=== PATIENT | female | born 1935 | race Caucasian/White ===

== ENCOUNTER 2018-05-16 12:54 | Inpatient (IN) ==
--- NOTE | 2018-05-16 13:21 | Emergency Department Note ---
Disposition Clinical Impression: Hyperkalemia, Uremia Acute on chronic kidney failure Qualifiers: Acute renal failure type: unspecified Chronic kidney disease stage: unspecified stage Qualified Code(s): N17.9 - Acute kidney failure, unspecified Heart failure Qualifiers: Heart failure type: other Qualified Code(s): I50.89 - Other heart failure Disposition: Admitted As Inpatient Condition: Fair General Adult HPI - General Stated complaint: weakness, sob Time Seen by Provider: 05/16/18 13:02 Source: patient Mode of arrival: EMS Limitations: no limitations Nursing Notes Reviewed: Yes Vital Signs Reviewed: Yes - History of Present Illness HPI Narrative: 83-year-old female with history of chronic kidney disease, diabetes, heart failure presents for evaluation of dyspnea and weakness. Patient presented from the cancer center. Patient notes increasing dyspnea. Most with exertion. Patient states she can no longer perform activities of daily living. Patient reports and operative cough. No chest pain. Patient states that she feels fluid overloaded. Does take Lasix at home with no change in dosing. Patient denies any fevers. No abdominal pain. Patient states she continues to urinate. Patient's windows software engineer is Dr. Newton. - Related Data Home Medications Medication Instructions Recorded Confirmed ALPRAZolam [Xanax 0.5 MG Tablet] 0.5 mg PO HS 05/05/18 05/16/18 Alendronate Sodium [Fosamax] 70 mg PO QWEEK 05/05/18 05/16/18 Allopurinol [Zyloprim 100 MG] 100 mg PO DAILY 05/05/18 05/16/18 Ascorbate Calcium/Bioflavonoid 1 each PO DAILY 05/05/18 05/16/18 [Laura-C 500 mg Tablet] Atorvastatin [Lipitor] 40 mg PO HS 05/05/18 05/16/18 Carvedilol 12.5 tab PO BID 05/05/18 05/16/18 Clopidogrel [Plavix] 75 mg PO DAILY 05/05/18 05/16/18 Furosemide [Lasix] 40 mg PO DAILY 05/05/18 05/16/18 Gabapentin [Neurontin] 300 mg PO BID 05/05/18 05/16/18 Glucosamn/Condroitn/C/Mn/[place] 1 each PO DAILY 05/05/18 05/16/18 [Cvs Glucosamine Chondroit Cplt] Hydralazine HCl 50 mg PO TID 05/05/18 05/16/18 Insulin ASPART [NovoLOG] 10 - 20 unit SQ TIDWM 05/05/18 05/16/18 Isosorbide MONOnitrate (24 HR) 60 mg PO DAILY 05/05/18 05/16/18 [Imdur] Meclizine HCl [Verticalm] 25 mg PO DAILY PRN 05/05/18 05/16/18 Nitroglycerin [Nitrostat] 0.4 mg SL PRN PRN 05/05/18 05/16/18 Olmesartan Medoxomil [Benicar] 40 mg PO DAILY 05/05/18 05/16/18 [place]-3S/Dha/Epa/Fish Oil [Fish 1 each PO BID 05/05/18 05/16/18 Oil [place]-3 Softgel] Ubidecarenone/Vit E Acetate [Co 300 mg PO DAILY 05/05/18 05/16/18 Q-10 100 mg Softgel] Vitamin B Complex Vit C No.4 1 tab PO DAILY 05/05/18 05/16/18 [Super B Complex] Insulin Degludec [Tresiba 10 - 16 unit SQ HS 05/16/18 05/16/18 Flextouch U-100] Allergies Allergy/AdvReac Type Severity Reaction Status Date / Time Iodinated Contrast- Oral and Allergy Anaphylaxis Verified 05/16/18 12:16 IV Dye aspirin AdvReac Nose Bleed Verified 05/16/18 12:16 chlorthalidone AdvReac OTHER Verified 05/16/18 12:16 codeine AdvReac Vomiting Verified 05/16/18 12:16 pregabalin [From Lyrica] AdvReac other Verified 05/16/18 12:16 tramadol AdvReac Headache Verified 05/16/18 12:16 All systems ED: reviewed and negative except as stated. Constitutional: Denies: fever Cardiovascular: Denies: chest pain Respiratory: Reports: cough, dyspnea. Denies: sputum production Gastrointestinal: Denies: abdominal pain, nausea, vomiting Past Medical History - Past Medical History Source: patient - Social History Smoking Status: Former smoker Alcohol use: Reports: none Physical Exam - General Limitations: no limitations General appearance: alert, in no apparent distress - Head Head exam: atraumatic, normocephalic, normal inspection - Eye Eye exam: Present: normal appearance - ENT ENT exam: normal exam, mucous membranes moist - Neck Neck exam: Present: normal inspection - Chest Chest inspection: Present: normal inspection - Respiratory Respiratory exam: Present: other (Diffusely diminished). Absent: respiratory distress - Cardiovascular Cardiovascular exam: Present: regular rate, normal rhythm. Absent: systolic murmur - Abdominal Exam Abdominal exam: Present: soft, Non-Tender - Extremities Exam Extremities exam: Present: normal inspection, pedal edema (1+ bilateral) - Expanded Lower Extremity Exam Neurovascular/Tendon exam: Present: normal capillary refill - Back Exam Back exam: Present: normal inspection - Neurological Exam Neurological exam: Present: alert, oriented X3, CN II-XII intact - Skin Skin exam: Present: warm, dry, intact, normal color Course Course Narrative: Patient's been evaluated the cancer center due to her chronic anemia. Patient denies any blood in her stool or dark tarry stools. Patient's records show that her creatinine is gotten worse. Patient's also had a 2 kg weight gain in 2 days. Patient will get basic cardiopulmonary labs, urinalysis chest x-ray disposition likely admission for worsening kidney disease. - Reevaluation(s) Reevaluation #1: Patient's resting comfortably. Patient's EKG does show sinus bradycardia. Concerns of this may be manifest with hyperkalemia in the setting of acute on chronic kidney disease. Patient will get insulin glucose and dextrose. Patient will also get calcium gluconate. Time: 14:55 Reevaluation #2: Renal ultrasound as well as repeat BMP was placed. This can be followed up on the inpatient setting. Time: 15:35 - Consultations Consultation #1: Spoke with nephrology states they will see the patient. Time: 14:48 Vital Signs Temperature 97.6 F 05/16/18 13:08 Pulse Rate 50 05/16/18 13:08 Respiratory Rate 16 05/16/18 13:08 Blood Pressure 124/42 05/16/18 13:08 O2 Sat by Pulse Oximetry 97 05/16/18 13:08 Temperature 98.8 F 05/16/18 17:58 Pulse Rate 60 05/16/18 17:58 Respiratory Rate 18 05/16/18 17:58 Blood Pressure 119/75 05/16/18 17:58 O2 Sat by Pulse Oximetry 89 05/16/18 17:58 Oxygen Delivery Oxygen Delivery Room Air Medical Decision Making - MDM Narrative Medical decision making narrative: Patient presented for shortness of breath. The course the patient's ED evaluation the patient has developed acute on chronic kidney disease. Patient is uremic with no change in mental status. Potassium is elevated at 5.5. Patient does have sinus bradycardia and concerns for elevated potassium. Patient was treated with calcium as well as sodium bicarbonate glucose and insulin. Patient was also noted to have an elevated BNP and concerns for just of heart failure. Patient's FE urea suggestive prerenal disease and was given a small fluid bolus. Patient's continued to urinate. Discussed the case with the on-call windows software engineer will see the patient has an inpatient. Patient is agreeable with this plan of care. - Lab Data Lab results reviewed: Yes I reviewed the patient's lab results. Result diagrams: 05/16/18 13:21 05/16/18 15:48 Lab Results 05/16/18 05/16/18 05/16/18 Range/Units 13:21 13:21 13:21 WBC 6.9 (4.3-11.1) K/mcL RBC 2.79 L (3.82-4.97) M/mcL Hgb 9.2 L (11.5-15.4) g/dL Hct 28.6 L (35.3-44.9) % MCV 102.5 H (83.0-100.0) fL MCH 33.0 (28.0-33.3) pg MCHC 32.2 (31.6-35.5) g/dL RDW 15.4 H (11.5-14.5) % Plt Count 149 (140-400) K/mcL MPV 12.4 (9.4-12.4) fL Immature Gran % 0.4 (0-4) % Seg Neutrophils % 81.6 % Lymphocytes % 12.6 % Monocytes % 3.8 % Eosinophils % 1.3 % Basophils % 0.3 % Neutrophils # 5.6 (1.6-8.9) K/mcL Lymphocytes # 0.9 (0.6-4.6) K/mcL Monocytes # 0.3 (0.0-1.3) K/mcL Eosinophils # 0.1 (0.0-0.6) K/mcL Basophils # 0.0 (0.0-0.2) K/mcL PT 13.1 H (9.4-12.1) Seconds INR 1.2 APTT 39.1 H (26.0-36.0) Seconds Sodium (136-145) mEq/L Potassium (3.5-5.1) mEq/L Chloride (98-107) mEq/L Carbon Dioxide (23-29) mEq/L BUN (8-23) mg/dL Creatinine (0.60-1.20) mg/dL Est GFR ( Amer) (> 60) Est GFR (Non-Af Amer) (> 60) BUN/Creatinine Ratio Glucose (70-105) mg/dL Calculated Osmolality Calcium (8.6-10.3) mg/dL Troponin I (< 0.04) ng/mL B-Natriuretic Peptide 1408 H (Less than 100) pg/mL Urine Color (Yellow) Urine Clarity (Clear) Urine pH (5.0-8.0) pH Units Ur Specific [place] (1.010-1.025) Urine Protein (Neg-Trace) mg/dL Urine Glucose (UA) (Normal) mg/dL Urine Ketones (Negative) mg/dL Urine Blood (Negative) Urine Nitrite (Negative) Urine Bilirubin (Negative) Urine Urobilinogen (Normal) mg/dL Ur Leukocyte Esterase (Negative) Urine Microscopic RBC (0-3) per hpf Urine Microscopic WBC (0-3) per hpf Ur Squamous Epith Cells (None-Few) per lpf Urine Bacteria (None-Few) per hpf Hyaline Casts (None-Few) per lpf Ur Culture Indicated? (NO) Urine Creatinine mg/dL Protein/Creatinin Ratio (0.00-0.20) mg/mg Urine Sodium mEq/L Urine Urea Nitrogen mg/dL Urine Total Protein (1-14) mg/dL 05/16/18 05/16/18 05/16/18 Range/Units 13:21 14:01 14:01 WBC (4.3-11.1) K/mcL RBC (3.82-4.97) M/mcL Hgb (11.5-15.4) g/dL Hct (35.3-44.9) % MCV (83.0-100.0) fL MCH (28.0-33.3) pg MCHC (31.6-35.5) g/dL RDW (11.5-14.5) % Plt Count (140-400) K/mcL MPV (9.4-12.4) fL Immature Gran % (0-4) % Seg Neutrophils % % Lymphocytes % % Monocytes % % Eosinophils % % Basophils % % Neutrophils # (1.6-8.9) K/mcL Lymphocytes # (0.6-4.6) K/mcL Monocytes # (0.0-1.3) K/mcL Eosinophils # (0.0-0.6) K/mcL Basophils # (0.0-0.2) K/mcL PT (9.4-12.1) Seconds INR APTT (26.0-36.0) Seconds Sodium 135 L (136-145) mEq/L Potassium 5.5 H (3.5-5.1) mEq/L Chloride 107 (98-107) mEq/L Carbon Dioxide 15 L (23-29) mEq/L BUN > 130 H (8-23) mg/dL Creatinine 5.60 H (0.60-1.20) mg/dL Est GFR ( Amer) 9 L (> 60) Est GFR (Non-Af Amer) 7 L (> 60) BUN/Creatinine Ratio TNP Glucose 140 H (70-105) mg/dL Calculated Osmolality TNP Calcium 9.7 (8.6-10.3) mg/dL Troponin I 0.03 (< 0.04) ng/mL B-Natriuretic Peptide (Less than 100) pg/mL Urine Color Yellow (Yellow) Urine Clarity Cloudy A (Clear) Urine pH 5.5 (5.0-8.0) pH Units Ur Specific [place] 1.016 (1.010-1.025) Urine Protein 30 H (Neg-Trace) mg/dL Urine Glucose (UA) Normal (Normal) mg/dL Urine Ketones Trace H (Negative) mg/dL Urine Blood Negative (Negative) Urine Nitrite Negative (Negative) Urine Bilirubin Negative (Negative) Urine Urobilinogen Normal (Normal) mg/dL Ur Leukocyte Esterase Negative (Negative) Urine Microscopic RBC 0-3 (0-3) per hpf Urine Microscopic WBC 0-3 (0-3) per hpf Ur Squamous Epith Cells Many H (None-Few) per lpf Urine Bacteria None Seen (None-Few) per hpf Hyaline Casts None Seen (None-Few) per lpf Ur Culture Indicated? NO (NO) Urine Creatinine 180 mg/dL Protein/Creatinin Ratio 0.19 (0.00-0.20) mg/mg Urine Sodium 12.0 mEq/L Urine Urea Nitrogen 562 mg/dL Urine Total Protein 35 H (1-14) mg/dL 05/16/18 Range/Units 15:48 WBC (4.3-11.1) K/mcL RBC (3.82-4.97) M/mcL Hgb (11.5-15.4) g/dL Hct (35.3-44.9) % MCV (83.0-100.0) fL MCH (28.0-33.3) pg MCHC (31.6-35.5) g/dL RDW (11.5-14.5) % Plt Count (140-400) K/mcL MPV (9.4-12.4) fL Immature Gran % (0-4) % Seg Neutrophils % % Lymphocytes % % Monocytes % % Eosinophils % % Basophils % % Neutrophils # (1.6-8.9) K/mcL Lymphocytes # (0.6-4.6) K/mcL Monocytes # (0.0-1.3) K/mcL Eosinophils # (0.0-0.6) K/mcL Basophils # (0.0-0.2) K/mcL PT (9.4-12.1) Seconds INR APTT (26.0-36.0) Seconds Sodium 134 L (136-145) mEq/L Potassium 5.2 H (3.5-5.1) mEq/L Chloride 107 (98-107) mEq/L Carbon Dioxide 17 L (23-29) mEq/L BUN > 130 H (8-23) mg/dL Creatinine 5.13 H (0.60-1.20) mg/dL Est GFR ( Amer) 10 L (> 60) Est GFR (Non-Af Amer) 8 L (> 60) BUN/Creatinine Ratio TNP Glucose 252 H (70-105) mg/dL Calculated Osmolality TNP Calcium 9.3 (8.6-10.3) mg/dL Troponin I (< 0.04) ng/mL B-Natriuretic Peptide (Less than 100) pg/mL Urine Color (Yellow) Urine Clarity (Clear) Urine pH (5.0-8.0) pH Units Ur Specific [place] (1.010-1.025) Urine Protein (Neg-Trace) mg/dL Urine Glucose (UA) (Normal) mg/dL Urine Ketones (Negative) mg/dL Urine Blood (Negative) Urine Nitrite (Negative) Urine Bilirubin (Negative) Urine Urobilinogen (Normal) mg/dL Ur Leukocyte Esterase (Negative) Urine Microscopic RBC (0-3) per hpf Urine Microscopic WBC (0-3) per hpf Ur Squamous Epith Cells (None-Few) per lpf Urine Bacteria (None-Few) per hpf Hyaline Casts (None-Few) per lpf Ur Culture Indicated? (NO) Urine Creatinine mg/dL Protein/Creatinin Ratio (0.00-0.20) mg/mg Urine Sodium mEq/L Urine Urea Nitrogen mg/dL Urine Total Protein (1-14) mg/dL - Radiology Data Radiology results reviewed: Yes I reviewed the patient's radiology results. Chest X-Ray 05/16/18 13:03 IMPRESSION: Cardiomegaly with mild vascular congestion. D/ / Rigo Cox MD / Rigo Cox MD Interpreting Provider: Rigo Cox MD - EKG Data EKG #1 EKG shows normal: sinus rhythm Rate: bradycardia Rhythm: NSR [place]/QRS: left axis deviation T wave inversions noted in: v1 (FLATTENED) Interpretation: no acute changes, nonspecific ST-T wave changes
[2018-05-16] MEDS ORDERED: 0.9 % Sodium Chloride 500 ML IVC ONE (13:33)
[2018-05-16 13:40] LABS: Basophils % 0.3 %; Eosinophils # 0.1 K/mcL (0.0-0.6); Eosinophils % 1.3 %; Hematocrit 28.6 % (35.3-44.9); Hemoglobin 9.2 g/dL (11.5-15.4); Immature Granulocytes % 0.4 % (0-4); Lymphocytes # 0.9 K/mcL (0.6-4.6); Lymphocytes % 12.6 %; Mean Corpuscular HGB Conc 32.2 g/dL (31.6-35.5); Mean Corpuscular Volume 102.5 fL (83.0-100.0); Mean Platelet Volume 12.4 fL (9.4-12.4); Monocytes # 0.3 K/mcL (0.0-1.3); Monocytes % 3.8 %; Neutrophils # 5.6 K/mcL (1.6-8.9); Platelet Count 149 K/mcL (140-400); Red Blood Count 2.79 M/mcL (3.82-4.97); Red Cell Distribution Width 15.4 % (11.5-14.5); Segmented Neutrophils % 81.6 %
--- NOTE | 2018-05-16 13:49 | Emergency Department Note ---
Disposition Clinical Impression: Acute on chronic kidney failure, Heart failure, Hyperkalemia, Uremia Disposition: Admitted As Inpatient Condition: Fair General Adult HPI - General Chief complaint: ED Weakness Stated complaint: weakness, sob Time Seen by Provider: 05/16/18 13:02 Source: patient Mode of arrival: EMS Limitations: no limitations - History of Present Illness Pain Scale: 0 - Related Data Home Medications Medication Instructions Recorded Confirmed ALPRAZolam [Xanax 0.5 MG Tablet] 0.5 mg PO HS 05/05/18 05/16/18 Alendronate Sodium [Fosamax] 70 mg PO QWEEK 05/05/18 05/16/18 Allopurinol [Zyloprim 100 MG] 100 mg PO DAILY 05/05/18 05/16/18 Ascorbate Calcium/Bioflavonoid 1 each PO DAILY 05/05/18 05/16/18 [Laura-C 500 mg Tablet] Atorvastatin [Lipitor] 40 mg PO HS 05/05/18 05/16/18 Carvedilol 12.5 tab PO BID 05/05/18 05/16/18 Clopidogrel [Plavix] 75 mg PO DAILY 05/05/18 05/16/18 Furosemide [Lasix] 40 mg PO DAILY 05/05/18 05/16/18 Gabapentin [Neurontin] 300 mg PO BID 05/05/18 05/16/18 Glucosamn/Condroitn/C/Mn/[place] 1 each PO DAILY 05/05/18 05/16/18 [Cvs Glucosamine Chondroit Cplt] Hydralazine HCl 50 mg PO TID 05/05/18 05/16/18 Insulin ASPART [NovoLOG] 10 - 20 unit SQ TIDWM 05/05/18 05/16/18 Isosorbide MONOnitrate (24 HR) 60 mg PO DAILY 05/05/18 05/16/18 [Imdur] Meclizine HCl [Verticalm] 25 mg PO DAILY PRN 05/05/18 05/16/18 Nitroglycerin [Nitrostat] 0.4 mg SL PRN PRN 05/05/18 05/16/18 Olmesartan Medoxomil [Benicar] 40 mg PO DAILY 05/05/18 05/16/18 [place]-3S/Dha/Epa/Fish Oil [Fish 1 each PO BID 05/05/18 05/16/18 Oil [place]-3 Softgel] Ubidecarenone/Vit E Acetate [Co 300 mg PO DAILY 05/05/18 05/16/18 Q-10 100 mg Softgel] Vitamin B Complex Vit C No.4 1 tab PO DAILY 05/05/18 05/16/18 [Super B Complex] Insulin Degludec [Tresiba 10 - 16 unit SQ HS 05/16/18 05/16/18 Flextouch U-100] Allergies Allergy/AdvReac Type Severity Reaction Status Date / Time Iodinated Contrast- Oral and Allergy Anaphylaxis Verified 05/16/18 12:16 IV Dye aspirin AdvReac Nose Bleed Verified 05/16/18 12:16 chlorthalidone AdvReac OTHER Verified 05/16/18 12:16 codeine AdvReac Vomiting Verified 05/16/18 12:16 pregabalin [From Lyrica] AdvReac other Verified 05/16/18 12:16 tramadol AdvReac Headache Verified 05/16/18 12:16 Constitutional: Denies: fever Cardiovascular: Denies: chest pain Respiratory: Reports: cough, dyspnea. Denies: sputum production Gastrointestinal: Denies: abdominal pain, nausea, vomiting Past Medical History - Past Medical History Medical history: Reports: CHF, diabetes, hypertension Psychiatric history: Reports: no psych history - Social History Smoking Status: Former smoker Smokeless Tobacco Status: No Alcohol use: Reports: none Drug use: Reports: none Physical Exam - General Limitations: no limitations General appearance: alert, in no apparent distress Course Vital Signs Temperature 97.6 F 05/16/18 13:08 Pulse Rate 50 05/16/18 13:08 Respiratory Rate 16 05/16/18 13:08 Blood Pressure 124/42 05/16/18 13:08 O2 Sat by Pulse Oximetry 97 05/16/18 13:08 Temperature 98.8 F 05/16/18 17:58 Pulse Rate 60 05/16/18 17:58 Respiratory Rate 18 05/16/18 17:58 Blood Pressure 119/75 05/16/18 17:58 O2 Sat by Pulse Oximetry 89 05/16/18 17:58 Oxygen Delivery Oxygen Delivery Room Air Medical Decision Making - Lab Data Result diagrams: 05/16/18 13:21 05/16/18 15:48 Lab Results 09/24/18 09/24/18 09/24/18 Range/Units 13:21 13:21 13:21 WBC 6.9 (4.3-11.1) K/mcL RBC 2.79 L (3.82-4.97) M/mcL Hgb 9.2 L (11.5-15.4) g/dL Hct 28.6 L (35.3-44.9) % MCV 102.5 H (83.0-100.0) fL MCH 33.0 (28.0-33.3) pg MCHC 32.2 (31.6-35.5) g/dL RDW 15.4 H (11.5-14.5) % Plt Count 149 (140-400) K/mcL MPV 12.4 (9.4-12.4) fL Immature Gran % 0.4 (0-4) % Seg Neutrophils % 81.6 % Lymphocytes % 12.6 % Monocytes % 3.8 % Eosinophils % 1.3 % Basophils % 0.3 % Neutrophils # 5.6 (1.6-8.9) K/mcL Lymphocytes # 0.9 (0.6-4.6) K/mcL Monocytes # 0.3 (0.0-1.3) K/mcL Eosinophils # 0.1 (0.0-0.6) K/mcL Basophils # 0.0 (0.0-0.2) K/mcL PT 13.1 H (9.4-12.1) Seconds INR 1.2 APTT 39.1 H (26.0-36.0) Seconds Sodium (136-145) mEq/L Potassium (3.5-5.1) mEq/L Chloride (98-107) mEq/L Carbon Dioxide (23-29) mEq/L BUN (8-23) mg/dL Creatinine (0.60-1.20) mg/dL Est GFR ( Amer) (> 60) Est GFR (Non-Af Amer) (> 60) BUN/Creatinine Ratio Glucose (70-105) mg/dL Calculated Osmolality Calcium (8.6-10.3) mg/dL Troponin I (< 0.04) ng/mL B-Natriuretic Peptide 1408 H (Less than 100) pg/mL Urine Color (Yellow) Urine Clarity (Clear) Urine pH (5.0-8.0) pH Units Ur Specific [place] (1.010-1.025) Urine Protein (Neg-Trace) mg/dL Urine Glucose (UA) (Normal) mg/dL Urine Ketones (Negative) mg/dL Urine Blood (Negative) Urine Nitrite (Negative) Urine Bilirubin (Negative) Urine Urobilinogen (Normal) mg/dL Ur Leukocyte Esterase (Negative) Urine Microscopic RBC (0-3) per hpf Urine Microscopic WBC (0-3) per hpf Ur Squamous Epith Cells (None-Few) per lpf Urine Bacteria (None-Few) per hpf Hyaline Casts (None-Few) per lpf Ur Culture Indicated? (NO) Urine Creatinine mg/dL Protein/Creatinin Ratio (0.00-0.20) mg/mg Urine Sodium mEq/L Urine Urea Nitrogen mg/dL Urine Total Protein (1-14) mg/dL 05/16/18 05/16/18 05/16/18 Range/Units 13:21 14:01 14:01 WBC (4.3-11.1) K/mcL RBC (3.82-4.97) M/mcL Hgb (11.5-15.4) g/dL Hct (35.3-44.9) % MCV (83.0-100.0) fL MCH (28.0-33.3) pg MCHC (31.6-35.5) g/dL RDW (11.5-14.5) % Plt Count (140-400) K/mcL MPV (9.4-12.4) fL Immature Gran % (0-4) % Seg Neutrophils % % Lymphocytes % % Monocytes % % Eosinophils % % Basophils % % Neutrophils # (1.6-8.9) K/mcL Lymphocytes # (0.6-4.6) K/mcL Monocytes # (0.0-1.3) K/mcL Eosinophils # (0.0-0.6) K/mcL Basophils # (0.0-0.2) K/mcL PT (9.4-12.1) Seconds INR APTT (26.0-36.0) Seconds Sodium 135 L (136-145) mEq/L Potassium 5.5 H (3.5-5.1) mEq/L Chloride 107 (98-107) mEq/L Carbon Dioxide 15 L (23-29) mEq/L BUN > 130 H (8-23) mg/dL Creatinine 5.60 H (0.60-1.20) mg/dL Est GFR ( Amer) 9 L (> 60) Est GFR (Non-Af Amer) 7 L (> 60) BUN/Creatinine Ratio TNP Glucose 140 H (70-105) mg/dL Calculated Osmolality TNP Calcium 9.7 (8.6-10.3) mg/dL Troponin I 0.03 (< 0.04) ng/mL B-Natriuretic Peptide (Less than 100) pg/mL Urine Color Yellow (Yellow) Urine Clarity Cloudy A (Clear) Urine pH 5.5 (5.0-8.0) pH Units Ur Specific [place] 1.016 (1.010-1.025) Urine Protein 30 H (Neg-Trace) mg/dL Urine Glucose (UA) Normal (Normal) mg/dL Urine Ketones Trace H (Negative) mg/dL Urine Blood Negative (Negative) Urine Nitrite Negative (Negative) Urine Bilirubin Negative (Negative) Urine Urobilinogen Normal (Normal) mg/dL Ur Leukocyte Esterase Negative (Negative) Urine Microscopic RBC 0-3 (0-3) per hpf Urine Microscopic WBC 0-3 (0-3) per hpf Ur Squamous Epith Cells Many H (None-Few) per lpf Urine Bacteria None Seen (None-Few) per hpf Hyaline Casts None Seen (None-Few) per lpf Ur Culture Indicated? NO (NO) Urine Creatinine 180 mg/dL Protein/Creatinin Ratio 0.19 (0.00-0.20) mg/mg Urine Sodium 12.0 mEq/L Urine Urea Nitrogen 562 mg/dL Urine Total Protein 35 H (1-14) mg/dL 05/16/18 Range/Units 15:48 WBC (4.3-11.1) K/mcL RBC (3.82-4.97) M/mcL Hgb (11.5-15.4) g/dL Hct (35.3-44.9) % MCV (83.0-100.0) fL MCH (28.0-33.3) pg MCHC (31.6-35.5) g/dL RDW (11.5-14.5) % Plt Count (140-400) K/mcL MPV (9.4-12.4) fL Immature Gran % (0-4) % Seg Neutrophils % % Lymphocytes % % Monocytes % % Eosinophils % % Basophils % % Neutrophils # (1.6-8.9) K/mcL Lymphocytes # (0.6-4.6) K/mcL Monocytes # (0.0-1.3) K/mcL Eosinophils # (0.0-0.6) K/mcL Basophils # (0.0-0.2) K/mcL PT (9.4-12.1) Seconds INR APTT (26.0-36.0) Seconds Sodium 134 L (136-145) mEq/L Potassium 5.2 H (3.5-5.1) mEq/L Chloride 107 (98-107) mEq/L Carbon Dioxide 17 L (23-29) mEq/L BUN > 130 H (8-23) mg/dL Creatinine 5.13 H (0.60-1.20) mg/dL Est GFR ( Amer) 10 L (> 60) Est GFR (Non-Af Amer) 8 L (> 60) BUN/Creatinine Ratio TNP Glucose 252 H (70-105) mg/dL Calculated Osmolality TNP Calcium 9.3 (8.6-10.3) mg/dL Troponin I (< 0.04) ng/mL B-Natriuretic Peptide (Less than 100) pg/mL Urine Color (Yellow) Urine Clarity (Clear) Urine pH (5.0-8.0) pH Units Ur Specific [place] (1.010-1.025) Urine Protein (Neg-Trace) mg/dL Urine Glucose (UA) (Normal) mg/dL Urine Ketones (Negative) mg/dL Urine Blood (Negative) Urine Nitrite (Negative) Urine Bilirubin (Negative) Urine Urobilinogen (Normal) mg/dL Ur Leukocyte Esterase (Negative) Urine Microscopic RBC (0-3) per hpf Urine Microscopic WBC (0-3) per hpf Ur Squamous Epith Cells (None-Few) per lpf Urine Bacteria (None-Few) per hpf Hyaline Casts (None-Few) per lpf Ur Culture Indicated? (NO) Urine Creatinine mg/dL Protein/Creatinin Ratio (0.00-0.20) mg/mg Urine Sodium mEq/L Urine Urea Nitrogen mg/dL Urine Total Protein (1-14) mg/dL Critical Care Time Critical Care Time: Yes Total Critical Care Time: 35 Attestation: Critical care performed: Time is exclusive of separately billable procedures. Time includes: direct patient care, patient reassessment, coordination of patient care, interpretation of data (laboratory data, radiology data, and respiratory data), review of patient's medical records, medical consultation and documentation of patient care. Procedures included in critical care time: Procedures excluded from critical care time: Attestation Statement - Attestation Attestation: I examined this patient and my medical decision-making was reviewed with the Resident Physician. I agree with the documented findings, disposition and treatment plan as described except to the extent set forth below. Patient presents to the ED with a chief complaint of weakness. Trouble doing her daily activities. Short of breath with exertion. Swelling. There is a been increasing since she was seen at the [facility] center last week. Patient was there for an outpatient blood transfusion at that time. She was sent in today from her follow-up appointment for further evaluation. On examination she is pleasant conversant in no distress. Her lungs are clear. She has trace pedal edema. Plan. Reviewed her labs from last week. She did have a GFR of 10 at that time. EKG here shows some bradycardia without P waves. Concern for hyperkalemia with worsening renal function. We will then give her a dose of calcium pending her labs here. Labs reveal a BUN/creatinine 1:30 and a creatinine of now 5. We have discussed with nephrology who will see her in consult. Treating her hyperkalemia. Patient is admitted to medicine.
[2018-05-16 13:51] LABS: INR 1.2; Prothrombin Time 13.1 Seconds (9.4-12.1)
[2018-05-16 13:53] LABS: Activated Partial Thrombo Time 39.1 Seconds (26.0-36.0)
[2018-05-16 14:08] LABS: Blood Urea Nitrogen > 130 mg/dL (8-23); Calcium 9.7 mg/dL (8.6-10.3); Carbon Dioxide 15 mEq/L (23-29); Chloride 107 mEq/L (98-107); Glucose 140 mg/dL (70-105); Potassium 5.5 mEq/L (3.5-5.1); Sodium 135 mEq/L (136-145); Troponin I 0.03 ng/mL (< 0.04); eGFR For Non-African Americans 7 (> 60)
[2018-05-16 14:09] LABS: Bilirubin,Urine Negative (Negative); Blood,Urine Negative (Negative); Clarity,Urine Cloudy (Clear); Color,Urine Yellow (Yellow); Glucose,Urine (UA) Normal (Normal); Ketones,Urine Trace mg/dL (Negative); Leukocyte Esterase,Urine Negative (Negative); Nitrite,Urine Negative (Negative); PH,Urine 5.5 pH Units (5.0-8.0); Protein,Urine 30 mg/dL (Neg-Trace); Specific Gravity,Urine 1.016 (1.010-1.025); Urobilinogen,Urine Normal (Normal)
[2018-05-16 14:14] LABS: Bacteria,Urine None Seen per hpf (None-Few); Hyaline Casts,Urine None Seen per lpf (None-Few); RBC,Urine 0-3 per hpf (0-3); Squamous Epithelial Cell,Urine Many per lpf (None-Few); WBC,Urine 0-3 per hpf (0-3)
[2018-05-16] MEDS ORDERED: Insulin Human Regular 10 UNIT in 0.9 % Sodium Chloride 10 ML IV ONE (14:53)
[2018-05-16] MEDS ORDERED: Sodium Bicarbonate 50 MEQ/50 ML VIAL IVP ONE (14:54)
[2018-05-16] MEDS ORDERED: *HR* Dextrose 50 % in Water (Syg) 50 ML SYRINGE IVP ONE (14:54)
[2018-05-16 16:12] LABS: Protein/Creatinine Ratio,Urine 0.19 mg/mg (0.00-0.20)
--- NOTE | 2018-05-16 16:21 | Nephrology Consult Note ---
<RobinmariiaYvonne Robb - Last Filed: 05/16/18 17:03> Date of Encounter: 05/16/18 Time of Encounter: 16:19 Assessment and Plan (1) Anemia in CKD (chronic kidney disease) Status: Acute Goal Hgb is 10-11. Is 9.2 today, stable. Qualifiers: Chronic kidney disease stage: stage 3 (moderate) Qualified Code(s): N18.3 - Chronic kidney disease, stage 3 (moderate); D63.1 - Anemia in chronic kidney disease (2) Hyperkalemia Status: Acute K is 5.5. Renal diet, when able to eat. (3) Acute kidney injury superimposed on CKD Status: Acute GFR is 7 down from 28. Avoid nephrotoxins and renal dose. Caution IVF until echo is complete for accurate EF. Pt appears SOB when taking to me at this time. History of Present Illness - Reason for Consult Consult date: 05/16/18 Chronic Kidney Disease - Chief Complaint fatigue, worsening renal function - History of Present Illness Ms. Roland is an 83 year female who [facility] for worsening renal function and fatigue. PMH: DM, HTN, and CHF. Ms. Roland's renal function has declined since March of this year, she is a patient of Dr. Cruz and to he knowledge she was CKD III. GFR is 7 today down from 28 last month. Denies any change of PMH or medications. Admits that she has progressively been more weak and short of breath. Does not wear home oxygen. Denies CP. Has recently been told she has CHF, last known EF was 60-65 in 2016. Patient tells me she has been going to the [facility] for chronic anemia. Retroperitoneal US ordered, not yet completed. Urine studies appreciated. Would hold off on IVF due to pt's wheezing. Pt did at times have difficulty in responding in complete sentence because she appeared SOB, but when I looked at Spo2 monitor, it did say 100% and the patient was not on oxygen. Chest xray today did show: Cardiomegaly with mild vascular congestion. Denies vomiting, diarrhea. Admits to feeling nauseated all day. Admits to decreased PO intake including both food and liquid. Denies dysuria, hematuria, frequency. States she is urinating okay. Morales cath placed in ED with minimal output. Spoke at length about CLOTH WINDER with patient and family members. All appeared receptive. Informed them we will recheck labs in AM to monitor kidney function. Uric Acid and CPK ordered for in the morning as well. Past Med Surg Social Fam HX - Past Medical History Medical history: CHF, diabetes, hypertension Additional medical history: anemia Psychiatric history: no psych history - Social History Smoking Status: Former smoker Smokeless Tobacco Status: No Alcohol use: none Drug use: none Medications and Allergies RX: ALPRAZolam [Xanax 0.5 MG Tablet] 0.5 mg PO HS 05/05/18 [History] RX: Alendronate Sodium [Fosamax] 70 mg PO QWEEK 05/05/18 [History] RX: Allopurinol [Zyloprim 100 MG] 100 mg PO DAILY 05/05/18 [History] RX: Ascorbate Calcium/Bioflavonoid [Laura-C 500 mg Tablet] 1 each PO DAILY 05/05/18 [History] RX: Atorvastatin [Lipitor] 40 mg PO HS 05/05/18 [History] RX: Carvedilol 12.5 tab PO BID 05/05/18 [History] RX: Clopidogrel [Plavix] 75 mg PO DAILY 05/05/18 [History] RX: Gabapentin [Neurontin] 300 mg PO BID 05/05/18 [History] RX: Glucosamn/Condroitn/C/Mn/[place] [[facility]vs Glucosamine Chondroit Cplt] 1 each PO DAILY 05/05/18 [History] RX: Hydralazine HCl 50 mg PO TID 05/05/18 [History] RX: Insulin ASPART [NovoLOG] 10 - 20 unit SQ TIDWM 05/05/18 [History] RX: Isosorbide MONOnitrate (24 HR) [Imdur] 60 mg PO DAILY 05/05/18 [History] RX: Meclizine HCl [Verticalm] 25 mg PO DAILY PRN 05/05/18 [History] RX: Nitroglycerin [Nitrostat] 0.4 mg SL PRN PRN 05/05/18 [History] RX: Olmesartan Medoxomil [Benicar] 40 mg PO DAILY 05/05/18 [History] RX: [place]-3S/Dha/Epa/Fish Oil [Fish Oil [place]-3 Softgel] 1 each PO BID 05/05/18 [History] RX: Ubidecarenone/Vit E Acetate [Co Q-10 100 mg Softgel] 300 mg PO DAILY 05/05/18 [History] RX: Vitamin B Complex Vit C No.4 [Super B Complex] 1 tab PO DAILY 05/05/18 [History] RX: Insulin Degludec [Tresiba Flextouch U-100] 10 - 16 unit SQ HS 05/16/18 [History] RX: Insulin DETEMIR [Levemir] 5 unit SQ HS [id number] 05/25/18 [Rx] Allergy/AdvReac Type Severity Reaction Status Date / Time Iodinated Contrast- Oral and Allergy Anaphylaxis Verified 05/16/18 12:16 IV Dye aspirin AdvReac Nose Bleed Verified 05/16/18 12:16 chlorthalidone AdvReac OTHER Verified 05/16/18 12:16 codeine AdvReac Vomiting Verified 05/16/18 12:16 pregabalin [From Lyrica] AdvReac other Verified 05/16/18 12:16 tramadol AdvReac Headache Verified 05/16/18 12:16 Review of Systems ROS unobtainable: other (as per HPI) Exam - Vital Signs Vital signs: Initial Vital Signs Temp Pulse Resp BP Pulse Ox 97.6 F 50 16 124/42 97 05/16/18 13:08 05/16/18 13:08 05/16/18 13:08 05/16/18 13:08 05/16/18 13:08 Vital Signs - Last 8 Hours Temp Pulse Resp BP Pulse Ox 05/16/18 15:41 53 18 97/46 97 05/16/18 14:31 45 16 115/41 98 05/16/18 13:08 97.6 F 50 16 124/42 97 Intake and Output 05/16/18 05/16/18 05/16/18 07:59 15:59 23:59 Intake Total 620.1 / 620.1 Balance 620.1 / 620.1 Intake: IV Fluids 620.1 / 620.1 HumuLIN R 10 UNIT In Normal 10.1 / 10.1 Saline Flush 10 ML @ 1212 mls/ hr IV ONCE ONE Rx#:[id number] 0.9 % Sodium Chloride 500 ML @ 500 / 500 999 mls/hr IVC .Q31M ONE Rx#: [id number] Calcium Gluconate 1,000 MG In 0 110 / 110 .9 % Sodium Chloride 100 ML @ 220 mls/hr IVPB ONCE ONE Rx#: [id number] Other: Weight 74.843 kg Patient Weight 05/16/18 23:59 Weight 74.843 kg - General Appearance General appearance: well-developed, well-nourished EENT: ATNC, hearing intact, vision intact Neck: supple Respiratory: wheezing Cardiology: no edema, normal S1, normal S2 Gastrointestinal: normoactive bowel sounds, no tenderness, no guarding Integumentary: no rash, warm and dry Neurologic: alert and oriented x3 Psychiatric: mood/affect appropriate, cooperative Results - Lab Results 05/16/18 13:21 05/16/18 15:48 Most recent lab results Calcium 9.7 mg/dL (8.6-10.3) 05/16/18 13:21 Urine Creatinine 180 mg/dL 05/16/18 14:01 Urine Sodium 12.0 mEq/L 05/16/18 14:01 Urine Total Protein 35 mg/dL (1-14) H 05/16/18 14:01 Consult Discharge Plan - Plan Referrals: Narciso Kelsey MD [Primary Care Provider] - ([facility] <Jeannette Hale - Last Filed: 06/17/18 19:51> Assessment and Plan (1) Acute kidney injury superimposed on CKD Status: Acute (2) Anemia in CKD (chronic kidney disease) Status: Acute Qualifiers: Chronic kidney disease stage: stage 3 (moderate) Qualified Code(s): N18.3 - Chronic kidney disease, stage 3 (moderate); D63.1 - Anemia in chronic kidney disease (3) Hyperkalemia Status: Resolved (4) Hypocalcemia Status: Acute Past Med Surg Social Fam HX - Family History Father Living Status: Age at : 51 Cause of : [place] Hx Family Cardiac Disorders: Yes (OK) Brother Living Status: Age at : 47 Cause of : [place] Hx Family Cardiac Disorders: Yes (OK) Exam - Vital Signs Vital signs: Initial Vital Signs Temp Pulse Resp BP Pulse Ox 97.6 F 50 16 124/42 97 05/16/18 13:08 05/16/18 13:08 05/16/18 13:08 05/16/18 13:08 05/16/18 13:08 Results - Lab Results 05/25/18 06:24 05/25/18 06:24 Most recent lab results ABG pH 7.40 pH Units (7.32-7.45) 05/18/18 16:37 ABG pCO2 46 mmHg (35-45) H 05/18/18 16:37 ABG pO2 91 mmHg (85-104) 05/18/18 16:37 ABG HCO3 28 mEq/L (21-27) H 05/18/18 16:37 ABG O2 Saturation 97 % (95-98) 05/18/18 16:37 Calcium 8.4 mg/dL (8.6-10.3) L 05/25/18 06:24 Phosphorus 3.6 mg/dL (2.7-4.5) 05/25/18 06:24 Magnesium 1.8 mg/dL (1.6-2.6) 05/25/18 06:24 Urine Creatinine 180 mg/dL 05/16/18 14:01 Urine Sodium 12.0 mEq/L 05/16/18 14:01 Urine Total Protein 35 mg/dL (1-14) H 05/16/18 14:01 - Attending Attestation I examined this patient and my medical decision-making was reviewed with the Resident Physician/CLOSING MANAGER. I agree with the documented findings, disposition and treatment plan as described except to the extent set forth below. In brief; 83 y o female with PMH of DM, HTN, CHF and chronic anemia admitted with progressive sOB as well as abnormal labs. SCr appears to have been declining in the past several months. She follows with Dr Cruz for her CKD management and more recently established with the cancer center for anemia management. GFR now down to7 from 28 and potassium at 5.5. On exam; elderly female with mild distress due to SOB with lungs with coarse BS bilat and LE with no edema. Would encourage po fluids and cautious use of IVF given SOB and CHF history. Will check uric acid and CPK levels. Will check urine studies. Avoid neprotoxins where possible. Discussed at great lengths need for CLOTH WINDER by morning if no improvement.
[2018-05-16 16:30] LABS: Blood Urea Nitrogen > 130 mg/dL (8-23); Calcium 9.3 mg/dL (8.6-10.3); Carbon Dioxide 17 mEq/L (23-29); Chloride 107 mEq/L (98-107); Glucose 252 mg/dL (70-105); Potassium 5.2 mEq/L (3.5-5.1); Sodium 134 mEq/L (136-145); eGFR For Non-African Americans 8 (> 60)
[2018-05-16] MEDS ORDERED: Naloxone 0.4 MG/ML INJ IVP PRN (16:52)
[2018-05-16] MEDS ORDERED: Dextrose Gel 15 GM/37.5 ML TUBE PO PRN ×2 (16:57)
[2018-05-16] MEDS ORDERED: *HR* Dextrose 50 % in Water (Syg) 50 ML SYRINGE IVP PRN (16:57)
[2018-05-16] MEDS ORDERED: D5% in Water 1,000 ML IVC PRN (16:57)
[2018-05-16] MEDS ORDERED: Albuterol 2.5 MG/3 ML NEBULIZER IH PRN (17:00)
[2018-05-16] MEDS ORDERED: Furosemide 20 MG/2 ML VIAL IVP ONE (17:29)
--- NOTE | 2018-05-16 17:39 | Internal Med History&Physical ---
Date of Encounter: 05/16/18 Time of Encounter: 17:33 Internal Medicine - H&P: HPI Chief complaint: Shortness of breath. Plans for Post Hospital Care: Home History of present illness: Ms. Roland is a 83 year old female PMH significant for HFpEF, HT, CKD stage III, Macular degeneration, CAD s/p two NC the last one being about 10 years ago. Patient was sent to the ED from the cancer clinic where she has been following up because of severe anemia, requiring blood transfusion, last transfusion of 1 PRBCs about a week ago. Today when patient went to the clinic she was sent to the emergency room as patient was complaining of shortness of breath, it has been noted at the clinic that the patient has been gaining weight, for the past 4 weeks the patient has gained about 6- pounds despite having a low appetite or not drinking significant amount of water. The patient also recalls increase in her abdominal grid, but denies edema in her lower extremities. She also denied fever, chills but reports a non-productive cough. Denies nausea, vomiting and abdominal pain. Patient reports being complaint with her medications and that she has not missed a dose of her water pill. Past Med Surg Social Fam HX - Past Medical History Medical history: CHF, diabetes, hypertension Additional medical history: anemia Psychiatric history: no psych history - Social History Smoking Status: Former smoker Smokeless Tobacco Status: No Alcohol use: none Drug use: none Internal Medicine - H&P: Meds ALPRAZolam [Xanax 0.5 MG Tablet] 0.5 mg PO HS 05/05/18 [History] Alendronate Sodium [Fosamax] 70 mg PO QWEEK 05/05/18 [History] Allopurinol [Zyloprim 100 MG] 100 mg PO DAILY 05/05/18 [History] Ascorbate Calcium/Bioflavonoid [Laura-C 500 mg Tablet] 1 each PO DAILY 05/05/18 [History] Atorvastatin [Lipitor] 40 mg PO HS 05/05/18 [History] Carvedilol 12.5 tab PO BID 05/05/18 [History] Clopidogrel [Plavix] 75 mg PO DAILY 05/05/18 [History] Furosemide [Lasix] 40 mg PO DAILY 05/05/18 [History] Gabapentin [Neurontin] 300 mg PO BID 05/05/18 [History] Glucosamn/Condroitn/C/Mn/[place] [[facility]vs Glucosamine Chondroit Cplt] 1 each PO DAILY 05/05/18 [History] Hydralazine HCl 50 mg PO TID 05/05/18 [History] Insulin ASPART [NovoLOG] 10 - 20 unit SQ TIDWM 05/05/18 [History] Isosorbide MONOnitrate (24 HR) [Imdur] 60 mg PO DAILY 05/05/18 [History] Meclizine HCl [Verticalm] 25 mg PO DAILY PRN 05/05/18 [History] Nitroglycerin [Nitrostat] 0.4 mg SL PRN PRN 05/05/18 [History] Olmesartan Medoxomil [Benicar] 40 mg PO DAILY 05/05/18 [History] [place]-3S/Dha/Epa/Fish Oil [Fish Oil [place]-3 Softgel] 1 each PO BID 05/05/18 [ History] Ubidecarenone/Vit E Acetate [Co Q-10 100 mg Softgel] 300 mg PO DAILY 05/05/18 [ History] Vitamin B Complex Vit C No.4 [Super B Complex] 1 tab PO DAILY 05/05/18 [History] Insulin Degludec [Tresiba Flextouch U-100] 10 - 16 unit SQ HS 05/16/18 [History] 3 Allergy/AdvReac Type Severity Reaction Status Date / Time Iodinated Contrast- Oral and Allergy Anaphylaxis Verified 05/16/18 12:16 IV Dye aspirin AdvReac Nose Bleed Verified 05/16/18 12:16 chlorthalidone AdvReac OTHER Verified 05/16/18 12:16 codeine AdvReac Vomiting Verified 05/16/18 12:16 pregabalin [From Lyrica] AdvReac other Verified 05/16/18 12:16 tramadol AdvReac Headache Verified 05/16/18 12:16 All Systems PM: A 10-system review of systems was performed and is negative for pertinent findings except as documented above in the HPI. - Constitutional Constitutional: weakness, weight gain, no anorexia, no chills, no excessive sweating, no fatigue, no fever(s), no lethargy, no malaise - EENT Eyes: no change in vision, no loss of peripheral vision - Cardiovascular Cardiovascular ROS IM: dyspnea on exertion, no chest pain, no diaphoresis, no irregular heart rhythm, no lightheadedness, no palpitations, no paroxysmal nocturnal dyspnea - Respiratory Respiratory: wheezing, no snoring - Gastrointestinal Gastrointestinal: no bloating, no excessive flatus, no heartburn, no hematochezia, no melena, no nausea, no vomiting - Genitourinary Genitourinary: no dysuria, no post void dribbling, no vaginal dryness - Musculoskeletal Musculoskeletal ROS IM: no limited range of motion, no numbness, no stiffness - Integumentary Integumentary IM: no erythema, no rash - Neurological Neurological ROS: no confusion, no lack of coordination, no tremor(s) - Psychiatric Psychiatric: no anxiety, no auditory hallucinations, no depression, no visual hallucinations - Endocrine Endocrine IM: no excessive sweating, no flushing - Allergic/Immunologic Allergic/Immunologic: no wheezing - Constitutional Vitals: Temp Pulse Resp BP Pulse Ox 97.6 F 53 18 97/46 97 05/16/18 13:08 05/16/18 15:41 05/16/18 15:41 05/16/18 15:41 05/16/18 15:41 Exam: General: Alert and oriented x4. In moderate distress due to labor breathing. Skin:Normal color, no rash, no lesions. HEENT:EOM, pupils equal, round and reactive. Cardiovascular: Normal S1 & S2, no rubs, murmurs or gallops. No JVD. Pulse regular. Lungs:Expiratory wheezing to auscultation b/l, no crackles or rales. Abdomen:Obese, distended, Soft, non-tender, no rigidity. Hypoactive bowel sounds Extremities: [place] pitting edema in the lower extremities b/l, no joint swelling or clubbing. Neurological:Normal cognition and motor skills. CN II-XII intact. Rest of the physical exam is non contributory Internal Med - H&P Results - Labs CBC & Chem 7: 05/16/18 13:21 05/16/18 15:48 - Assessment and plan (1) Acute kidney injury superimposed on CKD Current Visit: Yes Status: Acute Assessment and plan: CKD stage III. worsening kidney function possible pre-renal as patient has been having low PO intake for the past 4 weeks due to poor appetite. Plan will start patient on gentle IV diuresis with 0.45%NS@50mls/hr uric acid CPK level retroperitoneal US nephrology has been consulted will follow recommendations Avoid nephrotoxic medications (2) Acidosis, metabolic Current Visit: Yes Status: Acute Assessment and plan: Most likely due to NITHIN on CKD. Plan of care as above. (3) Congestive heart failure (CHF) Current Visit: Yes Status: Acute Assessment and plan: Chest with expiratory wheezing. No crackles or rales. Plan Hold furosemide repeat 2D echocardiogram to evaluate E.F and valve strict intake and output daily weights 2 gram sodium diet. Continue carvedilol 6.25mg/PO BID will hold Isosorbide until BP more stable. Qualifiers: Heart failure type: diastolic Heart failure chronicity: chronic Qualified Code(s): I50.32 - Chronic diastolic (congestive) heart failure (4) Hyperkalemia Current Visit: Yes Status: Acute Assessment and plan: Due to NITHIN on CKD. patient placed on telemetry monitoring. repeat BMP in the morning. (5) Diabetes Current Visit: Yes Status: Chronic Assessment and plan: Started on Levemir 5 units HS plus Lispro sliding scale low dose. 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 Patient re-started on her home dose of aspirin, palvix and statin. Qualifiers: Coronary Disease-Associated Artery/Lesion type: unspecified vessel or lesion type [place] vs. transplanted heart: unspecified whether [place] or transplanted heart Associated angina: angina presence unspecified Qualified Code(s): I25.10 - Atherosclerotic heart disease of [place] coronary artery without angina pectoris (7) DVT prophylaxis Current Visit: Yes Status: Acute Assessment and plan: Started on Heparin 5000 units SubQ BID - Time Spent With Patient Total time spent is greater than 50% in coordination of care (as documented) at patient's floor/unit and/or counseling patient: Greater than 35 minutes
[2018-05-16] MEDS: *HR* Heparin 5,000 UNIT/ML VIAL SQ SCH (18:22)
[2018-05-16] MEDS: D5% in 0.45% NACL 1,000 ML IVC SCH (18:34)
[2018-05-16] MEDS: Insulin DETEMIR 100 UNIT/ML X5UNITS SQ SCH (22:39)
[2018-05-17] MEDS: *HR* Heparin 5,000 UNIT/ML VIAL SQ SCH ×2 (05:27→18:06)
[2018-05-17 05:46] LABS: Hematocrit 25.2 % (35.3-44.9); Hemoglobin 8.4 g/dL (11.5-15.4); Mean Corpuscular HGB Conc 33.3 g/dL (31.6-35.5); Mean Corpuscular Hemoglobin 34.3 pg (28.0-33.3); Mean Corpuscular Volume 102.9 fL (83.0-100.0); Mean Platelet Volume 12.9 fL (9.4-12.4); Platelet Count 120 K/mcL (140-400); Red Blood Count 2.45 M/mcL (3.82-4.97); Red Cell Distribution Width 15.2 % (11.5-14.5)
[2018-05-17 06:07] LABS: Blood Urea Nitrogen > 130 mg/dL (8-23); Calcium 8.9 mg/dL (8.6-10.3); Carbon Dioxide 15 mEq/L (23-29); Chloride 106 mEq/L (98-107); Creatine Kinase 71 Units/L (30-223); Glucose 151 mg/dL (70-105); Magnesium 1.9 mg/dL (1.6-2.6); Phosphorous 5.5 mg/dL (2.7-4.5); Potassium 5.4 mEq/L (3.5-5.1); Sodium 133 mEq/L (136-145); Uric Acid 5.8 mg/dL (2.3-7.6); eGFR For Non-African Americans 7 (> 60)
[2018-05-17 07:37] LABS: Estimated Average Glucose 128 mg/dl; Hemoglobin A1C 6.1 %
[2018-05-17] MEDS: Insulin LISPRO 300 UNITS/3 ML VIAL SQ SCH ×4 (08:42→22:14)
--- NOTE | 2018-05-17 12:12 | Nephrology Progress Note ---
Date of Encounter: 05/17/18 Time of Encounter: 12:09 - Assessment and Plan (1) Acute kidney injury superimposed on CKD Current Visit: Yes Status: Acute GFR unchaged at 7. Avoid nephrotoxins and renal dose. Uop 100 yesterday, 25 cc for today. Pt agrees to proceed with HD and temp. HD line. (2) Anemia in CKD (chronic kidney disease) Current Visit: No Status: Acute Goal Hgb is 10-11. Is today 8.4 today, stable. Qualifiers: Chronic kidney disease stage: stage 3 (moderate) Qualified Code(s): N18.3 - Chronic kidney disease, stage 3 (moderate); D63.1 - Anemia in chronic kidney disease (3) Hyperkalemia Current Visit: Yes Status: Acute K is 5.4, will correct with HD. Renal diet, when able to eat. Subjective Principal diagnosis: weakness/shortness of breath Interval history: Pt seen and examined with Dr. Ewing. Spoke with family and patient in length about the need for HD and temp line placement today. Patient agrees. Objective - Vital Signs Vital signs: Vital Signs Temp Pulse Resp BP Pulse Ox 05/17/18 10:56 98.8 F 55 18 115/48 95 05/17/18 09:00 95 05/17/18 07:31 98.7 F 50 18 110/47 95 05/17/18 03:48 97.9 F 47 97/43 92 05/17/18 01:15 97.9 F 45 17 121/52 94 05/16/18 20:02 16 95 05/16/18 19:56 95 05/16/18 19:39 97.6 F 47 17 119/44 95 05/16/18 19:26 95 05/16/18 17:58 98.8 F 60 18 119/75 89 Intake and Output 05/16/18 05/17/18 05/17/18 23:59 07:59 15:59 Intake Total 700 / 700 100 / 100 0 / 0 Output Total 150 / 150 / 25 0 / 0 Balance 550 / 550 75 / 75 0 / 0 Intake: Oral 700 / 700 100 / 100 0 / 0 Output: Urine 50 / 50 0 / 0 Catheter 100 / 100 / 25 Other: Weight 70.817 kg Blood Glucose* 187 187 198 Patient Weight 05/17/18 23:59 Weight 70.817 kg - General Appearance General appearance: Present: well-developed, well-nourished EENT: Present: ATNC, hearing intact, vision intact Neck: Present: supple Respiratory: Present: clear Cardiology: Present: edema (Trace non pitting edema noted to all four extremities.), normal S1, normal S2 Gastrointestinal: Present: normoactive bowel sounds, no tenderness, no guarding Integumentary: Present: no rash, warm and dry Neurologic: Present: alert and oriented x3 Psychiatric: Present: mood/affect appropriate, cooperative - Lab 05/17/18 05:17 05/17/18 05:17 Most recent lab results Calcium 8.9 mg/dL (8.6-10.3) 05/17/18 05:17 Phosphorus 5.5 mg/dL (2.7-4.5) H 05/17/18 05:17 Magnesium 1.9 mg/dL (1.6-2.6) 05/17/18 05:17 Urine Creatinine 180 mg/dL 05/16/18 14:01 Urine Sodium 12.0 mEq/L 05/16/18 14:01 Urine Total Protein 35 mg/dL (1-14) H 05/16/18 14:01 Consult Discharge Plan - Plan Referrals: Narciso Kelsey MD [Primary Care Provider] -
[2018-05-17] MEDS ORDERED: *HR* Heparin 5,000 UNIT/ML VIAL ONE (13:52)
[2018-05-17] MEDS ORDERED: *HR* Heparin 10,000 UNIT/10 ML VIAL IV PRN (14:29)
[2018-05-17] MEDS ORDERED: 0.9 % Sodium Chloride 250 ML IVC PRN (14:29)
[2018-05-17] MEDS ORDERED: 0.9 % Sodium Chloride 1,000 ML PRIME SCH (14:30)
[2018-05-17] MEDS: D5% in 0.45% NACL 1,000 ML IVC SCH (14:32)
[2018-05-17] MEDS ORDERED: MethylPREDNISolone 40 MG/ML VIAL IVP ONE (17:29)
[2018-05-17] MEDS ORDERED: Furosemide 20 MG/2 ML VIAL IVP ONE (17:32)
[2018-05-17 18:08] LABS: Hepatitis B Surface Antigen Nonreactive (Nonreactive)
--- NOTE | 2018-05-17 19:14 | Internal Med Progress Note ---
Hospitalist Progress Note - Encounter Date of Encounter: 05/17/18 Time of Encounter: 11:00 - Subjective Interval History: Patient with history significant for HFpEF,CAD and CKD stage III who presents with shortness of breath found to have acute on chronic stage III kidney disease. Creatinine continues to worsen and therefore recommendations for hemodialysis by nephrology who is following - Exam Vitals: Temp Pulse Resp BP Pulse Ox 97.2 F L 55 18 126/50 95 05/17/18 18:00 05/17/18 10:56 05/17/18 18:00 05/17/18 18:00 05/17/18 10:56 Exam: Gen.: Nonacute distress, alert and oriented 3 ENT: Mucosal membranes moist Respiratory: Lungs are clear to auscultation bilaterally without any wheezing rhonchi or rales Cardiovascular: Normal S1 and S2 regular rate rhythm no murmurs rubs or gallops Abdomen: Soft, nontender and nondistended with positive bowel sounds Extremities: No lower extremity edema Skin: Normal color - Assessment and Plan (1) Acute kidney injury superimposed on CKD Current Visit: Yes Status: Acute Assessment and Plan: CKD stage III. worsening kidney function possible pre-renal as patient has been having low PO intake for the past 4 weeks due to poor appetite. Continue gentle IV diuresis with 0.45%NS@50mls/hr Nephrology following with recommendations for hemodialysis (2) Hyperkalemia Current Visit: Yes Status: Acute Assessment and Plan: Secondary to the above. Secondary to renal failure as above and will monitor potassium levels (3) Congestive heart failure (CHF) Current Visit: Yes Status: Acute Assessment and Plan: Repeat echocardiogram pending 2 gram sodium diet. Continue carvedilol 6.25mg/PO BID will hold Isosorbide until BP more stable. (4) Diabetes Current Visit: Yes Status: Chronic Assessment and Plan: Started on Levemir 5 units HS plus Lispro sliding scale low dose. (5) CAD (coronary artery disease) Current Visit: Yes Status: Acute Assessment and Plan: Continue home dose of aspirin, palvix and statin. (6) DVT prophylaxis Current Visit: Yes Status: Acute Assessment and Plan: Started on Heparin 5000 units SubQ BID - Time Spent with Patient Total time spent is greater than 50% in coordination of care (as documented) at patient's floor/unit and/or counseling patient: Internal Medicine: Result - Labs CBC & Chem 7: 09/25/18 05:17 05/17/18 05:17 Labs: Short CBC 05/17/18 Range/Units 05:17 WBC 5.9 (4.3-11.1) K/mcL Hgb 8.4 L (11.5-15.4) g/dL Hct 25.2 L (35.3-44.9) % Plt Count 120 L (140-400) K/mcL BMP 05/17/18 05:17 Sodium 133 L Potassium 5.4 H Chloride 106 Carbon Dioxide 15 L BUN > 130 H Creatinine 5.61 H Glucose 151 H Calcium 8.9 - ABG Interpretation ABG results: PT/INR, D-dimer PT 13.1 Seconds (9.4-12.1) H 05/16/18 13:21 - Impressions Impressions Echocardiogram 05/16/18 17:45 Impressions: Technically adequate exam. LVEF 60%. Moderate left ventricular diastolic dysfunction. Mildly dilated left ventricle. Normal right ventricular structure and function. Moderately dilated left atrium. Mildly dilated right atrium. Mildly thickened mitral valve leaflets. Posterior mitral leaflet is mildly immobile Mild pulmonary hypertension. Left Ventricular Wall Motion: Rest Echo Findings All wall segments showed normal motion. Findings: Study Quality * Technically adequate exam. ECG Findings * Normal sinus rhythm. Left Ventricle * LVEF 60%. * Moderate left ventricular diastolic dysfunction. * Mildly dilated left ventricle. Right Ventricle * Normal right ventricular structure and function. Left Atrium * Moderately dilated left atrium. Right Atrium * Mildly dilated right atrium. Interatrial Septum * No evidence of PFO by color Doppler. Aortic Valve * Trileaflet aortic valve. * Mildly calcified aortic valve leaflets. * Mild aortic regurgitation. * No aortic stenosis. Mitral Valve * Mildly thickened mitral valve leaflets. * Posterior leaflet is mildly immobile * Mild mitral regurgitation. Tricuspid Valve * Normal tricuspid valve structure and function. * No tricuspid regurgitation. * No tricuspid stenosis. * Mild pulmonary hypertension. * Estimated RVSP is 37 mmHg. * Estimated RA pressure is 5 mmHg. Pulmonic Valve * Normal pulmonic valve structure and function. * No pulmonic regurgitation. Aorta * Normally sized aortic root. Pericardium * The pericardium appears normal. IVC * Normal IVC dimensions and inspiratory collapse. Pulmonary Artery * Normal visualized portions of the main pulmonary artery. Retroperitoneum Ultrasound 05/16/18 20:00 IMPRESSION: Normal kidneys without evidence of hydronephrosis. Trace nonspecific perinephric fluid. Decompressed urinary bladder via Morales catheter. D/ / Jaylon Crabtree / Jaylon Crabtree Interpreting Provider: Jaylon Crabtree Guidance Ultrasound 05/17/18 00:00 IMPRESSION: Successful ultrasound guided non-tunneled catheter placement. D/ / Suleman Yu MD / Suleman Yu MD Interpreting Provider: Suleman Yu MD Insertion Non-Tunneled Catheter 05/17/18 00:00 IMPRESSION: Successful ultrasound guided non-tunneled catheter placement. D/ / Suleman Yu MD / Suleman Yu MD Interpreting Provider: Suleman Yu MD Chest X-Ray 05/17/18 14:29 IMPRESSION: Right internal jugular catheter with tip extending to the cavoatrial junction. No pneumothorax. Findings of pulmonary edema with small pleural effusions. D/ / 05/17/2018 15:11:50 Kevin Bond MD / rena Interpreting Provider: Kevin Bond MD Consult Discharge Plan - Plan Referrals: Narciso Kelsey MD [Primary Care Provider] - (3) Congestive heart failure (CHF) Qualifiers: Heart failure type: diastolic Heart failure chronicity: chronic Qualified Code(s): I50.32 - Chronic diastolic (congestive) heart failure (4) Diabetes Qualifiers: Diabetes mellitus type: type 2 Diabetes mellitus residential insulin use: unspecified residential insulin use status Diabetes mellitus complication status : with unspecified complications Qualified Code(s): E11.8 - Type 2 diabetes mellitus with unspecified complications (5) CAD (coronary artery disease) Qualifiers: Coronary Disease-Associated Artery/Lesion type: unspecified vessel or lesion type [place] vs. transplanted heart: unspecified whether [place] or transplanted heart Associated angina: angina presence unspecified Qualified Code(s): I25.10 - Atherosclerotic heart disease of [place] coronary artery without angina pectoris
[2018-05-17] MEDS: Insulin DETEMIR 100 UNIT/ML X5UNITS SQ SCH (22:24)
[2018-05-18 03:04] LABS: Hepatitis B Surface Antibody 0.69 mIU/mL
[2018-05-18] MEDS: *HR* Heparin 5,000 UNIT/ML VIAL SQ SCH ×2 (07:00→16:53)
[2018-05-18 07:24] LABS: Basophils % 0.1 %; Hematocrit 29.3 % (35.3-44.9); Immature Granulocytes % 0.4 % (0-4); Lymphocytes # 0.5 K/mcL (0.6-4.6); Lymphocytes % 6.1 %; Mean Corpuscular HGB Conc 34.1 g/dL (31.6-35.5); Mean Corpuscular Hemoglobin 34.4 pg (28.0-33.3); Mean Corpuscular Volume 100.7 fL (83.0-100.0); Mean Platelet Volume 12.6 fL (9.4-12.4); Monocytes # 0.3 K/mcL (0.0-1.3); Monocytes % 3.4 %; Neutrophils # 7.1 K/mcL (1.6-8.9); Platelet Count 114 K/mcL (140-400); Red Blood Count 2.91 M/mcL (3.82-4.97); Red Cell Distribution Width 15.2 % (11.5-14.5)
[2018-05-18 07:46] LABS: Calcium 8.8 mg/dL (8.6-10.3); Potassium 4.4 mEq/L (3.5-5.1)
[2018-05-18] MEDS ORDERED: Ondansetron 4 MG/2 ML VIAL ONE (08:44)
[2018-05-18] MEDS: Insulin LISPRO 300 UNITS/3 ML VIAL SQ SCH ×4 (08:54→21:38)
[2018-05-18] MEDS: Ondansetron 4 MG/2 ML VIAL IVP PRN ×2 (09:02→14:53)
[2018-05-18] MEDS ORDERED: 0.9 % Sodium Chloride 250 ML IVC PRN (09:59)
[2018-05-18] MEDS ORDERED: *HR* Heparin 10,000 UNIT/10 ML VIAL IV PRN (09:59)
[2018-05-18] MEDS ORDERED: 0.9 % Sodium Chloride 1,000 ML PRIME SCH (10:00)
--- NOTE | 2018-05-18 10:15 | Nephrology Progress Note ---
Date of Encounter: 05/18/18 Time of Encounter: 10:10 - Assessment and Plan (1) Acute kidney injury superimposed on CKD Current Visit: Yes Status: Acute GFR improved at 12, expected with HD. Plan for HD today. Avoid nephrotoxins and renal dose. No Uop noted in EMR but approximately 250 cc in Morales bag. (2) Anemia in CKD (chronic kidney disease) Current Visit: No Status: Acute Goal Hgb is 10-11. Is today 10 today. Qualifiers: Chronic kidney disease stage: stage 3 (moderate) Qualified Code(s): N18.3 - Chronic kidney disease, stage 3 (moderate); D63.1 - Anemia in chronic kidney disease (3) Hyperkalemia Current Visit: Yes Status: Acute K is 4.4, improved. Renal diet, when able to eat. Subjective Principal diagnosis: weakness/shortness of breath Interval history: Pt seen and examined, doing well. Admits to nausea. Objective - Vital Signs Vital signs: Vital Signs Temp Pulse Resp BP Pulse Ox 05/18/18 09:08 92 05/18/18 08:00 97.8 F 67 18 147/54 92 05/18/18 00:24 98.4 F 61 15 153/71 94 05/17/18 21:06 97.6 F 64 16 154/64 93 05/17/18 18:00 97.2 F L 18 126/50 05/17/18 17:35 114/51 05/17/18 17:20 121/53 05/17/18 17:05 121/55 05/17/18 16:50 126/51 05/17/18 16:35 137/56 05/17/18 16:20 143/75 05/17/18 16:05 139/60 05/17/18 15:50 142/57 05/17/18 15:35 98.6 F 18 131/55 05/17/18 10:56 98.8 F 55 18 115/48 95 Intake and Output 05/17/18 05/18/18 05/18/18 23:59 07:59 15:59 Intake Total 0 / 0 150 / 150 Output Total 2600 / 2600 Balance -2600 / -2600 150 / 150 Intake: Oral 0 / 0 150 / 150 Output: Total Dialysis (HD) Output 2600 / 2600 Other: Meal npo Stool Size Large Stool Consistency liquid # Bowel Movements 1 Blood Glucose* 167 182 Hemodialysis Net Fluid Removed 2000 (mL) - General Appearance General appearance: Present: well-developed, well-nourished EENT: Present: ATNC, hearing intact, vision intact Neck: Present: supple Respiratory: Present: clear Cardiology: Present: edema (Trace edema to all extremities.), normal S1, normal S2 Dialysis Vascular Access: Venous Catheter (Tunneled Line, DRSG C/DI) Gastrointestinal: Present: normoactive bowel sounds, no tenderness, no guarding Integumentary: Present: no rash, warm and dry Neurologic: Present: alert and oriented x3 Psychiatric: Present: mood/affect appropriate, cooperative - Lab 05/18/18 07:14 05/18/18 07:14 Most recent lab results Calcium 8.8 mg/dL (8.6-10.3) 05/18/18 07:14 Phosphorus 5.5 mg/dL (2.7-4.5) H 05/17/18 05:17 Magnesium 1.9 mg/dL (1.6-2.6) 05/17/18 05:17 Urine Creatinine 180 mg/dL 05/16/18 14:01 Urine Sodium 12.0 mEq/L 05/16/18 14:01 Urine Total Protein 35 mg/dL (1-14) H 05/16/18 14:01 Consult Discharge Plan - Plan Referrals: Narciso Kelsey MD [Primary Care Provider] -
[2018-05-18] MEDS: D5% in 0.45% NACL 1,000 ML IVC SCH (11:30)
[2018-05-18 16:40] LABS: ABG Base Excess 3 mEq/L (-2 to 3); ABG HCO3 28 mEq/L (21-27); ABG Oxygen Saturation 97 % (95-98); ABG PCO2 46 mmHg (35-45); ABG PO2 91 mmHg (85-104); ABG TCO2 30 mEq/L (20-26)
--- NOTE | 2018-05-18 17:30 | Electrocardiograph Report ---
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 Nonspecific IVCD with LAD Borderline T abnormalities, lateral leads Low voltage throughout Electronically Signed On 05-18-2018 17:28:07 EDT by Jony Haines
--- NOTE | 2018-05-18 20:54 | Internal Med Progress Note ---
Hospitalist Progress Note - Encounter Date of Encounter: 05/18/18 Time of Encounter: 11:00 - Subjective Interval History: Patient with history significant for HFpEF,CAD and CKD stage III who presents with shortness of breath found to have acute on chronic stage III kidney disease. Creatinine now improving after starting hemodialysis per nephrology's recommendations Patient however this morning hypoxic and was placed on supplemental oxygenation - Exam Vitals: Temp Pulse Resp BP Pulse Ox 97.3 F L 68 17 122/59 96 05/18/18 19:44 05/18/18 19:44 05/18/18 19:44 05/18/18 19:44 05/18/18 19:44 Exam: Gen.: Nonacute distress, alert and oriented 3 ENT: Mucosal membranes moist Respiratory: Lungs are clear to auscultation bilaterally without any wheezing rhonchi or rales Cardiovascular: Normal S1 and S2 regular rate rhythm no murmurs rubs or gallops Abdomen: Soft, nontender and nondistended with positive bowel sounds Extremities: No lower extremity edema Skin: Normal color - Assessment and Plan (1) Acute respiratory failure with hypoxia Current Visit: Yes Status: Acute Assessment and Plan: Patient this morning and not requiring supplemental oxygenation at 2 L of nasal cannula Suspect secondary to volume overload and IV fluids was discontinued Will continue to monitor (2) Acute kidney injury superimposed on CKD Current Visit: Yes Status: Acute Assessment and Plan: CKD stage III. worsening kidney function possible pre-renal as patient has been having low PO intake for the past 4 weeks due to poor appetite. Will discontinue gentle IV diuresis with 0.45%NS@50mls/hr due to the above Nephrology following with recommendations for hemodialysis (3) Hyperkalemia Current Visit: Yes Status: Acute Assessment and Plan: Secondary to the above. Secondary to renal failure as above and will monitor potassium levels (4) Congestive heart failure (CHF) Current Visit: Yes Status: Acute Assessment and Plan: Repeat echocardiogram pending 2 gram sodium diet. Continue carvedilol 6.25mg/PO BID will hold Isosorbide until BP more stable. (5) Diabetes Current Visit: Yes Status: Chronic Assessment and Plan: Started on Levemir 5 units HS plus Lispro sliding scale low dose. (6) CAD (coronary artery disease) Current Visit: Yes Status: Acute Assessment and Plan: Continue home dose of aspirin, palvix and statin. (7) DVT prophylaxis Current Visit: Yes Status: Acute Assessment and Plan: Started on Heparin 5000 units SubQ BID - Time Spent with Patient Total time spent is greater than 50% in coordination of care (as documented) at patient's floor/unit and/or counseling patient: Internal Medicine: Result - Labs CBC & Chem 7: 05/19/18 05:00 05/19/18 05:00 Labs: Short CBC 05/18/18 Range/Units 07:14 WBC 7.9 (4.3-11.1) K/mcL Hgb 10.0 L D (11.5-15.4) g/dL Hct 29.3 L (35.3-44.9) % Plt Count 114 L (140-400) K/mcL Neutrophils # 7.1 (1.6-8.9) K/mcL BMP 05/18/18 07:14 Sodium 135 L Potassium 4.4 Chloride 105 Carbon Dioxide 16 L BUN 99 H Creatinine 3.75 H Glucose 190 H Calcium 8.8 - ABG Interpretation ABG results: ABG ABG pH 7.40 pH Units (7.32-7.45) 05/18/18 16:37 ABG pCO2 46 mmHg (35-45) H 05/18/18 16:37 ABG pO2 91 mmHg (85-104) 05/18/18 16:37 ABG O2 Saturation 97 % (95-98) 05/18/18 16:37 PT/INR, D-dimer PT 13.1 Seconds (9.4-12.1) H 05/16/18 13:21 - Impressions Impressions Chest X-Ray 05/18/18 11:46 IMPRESSION: Stable exam with stable pulmonary vascular congestion and possibly some mild interstitial edema without definite overt pulmonary edema. Stable small bilateral pleural effusions, left larger than right, along with mild left basilar atelectasis or infiltrate. Stable cardiomegaly. 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 transplanted heart: unspecified whether [place] or transplanted heart Associated angina: angina presence unspecified Qualified Code(s): I25.10 - Atherosclerotic heart disease of [place] coronary artery without angina pectoris
[2018-05-18] MEDS: Insulin DETEMIR 100 UNIT/ML X5UNITS SQ SCH (21:24)
[2018-05-19] MEDS: *HR* Heparin 5,000 UNIT/ML VIAL SQ SCH ×2 (05:10→17:40)
[2018-05-19 05:25] LABS: Mean Corpuscular HGB Conc 32.9 g/dL (31.6-35.5); Red Cell Distribution Width 15.5 % (11.5-14.5)
[2018-05-19 05:27] LABS: Hematocrit 24.3 % (35.3-44.9); Immature Platelets 11.2 % (1.1-6.1); Mean Corpuscular Hemoglobin 33.8 pg (28.0-33.3); Mean Corpuscular Volume 102.5 fL (83.0-100.0); Mean Platelet Volume 13.1 fL (9.4-12.4); Red Blood Count 2.37 M/mcL (3.82-4.97)
[2018-05-19 06:21] LABS: Calcium 6.7 mg/dL (8.6-10.3); Potassium 3.2 mEq/L (3.5-5.1)
[2018-05-19] MEDS ORDERED: 0.9 % Sodium Chloride 2,000 ML ONE (07:43)
[2018-05-19] MEDS ORDERED: *HR* Heparin 10,000 UNIT/10 ML VIAL IV PRN (07:53)
[2018-05-19] MEDS ORDERED: 0.9 % Sodium Chloride 250 ML IVC PRN (07:53)
[2018-05-19] MEDS ORDERED: 0.9 % Sodium Chloride 1,000 ML PRIME SCH (08:00)
[2018-05-19] MEDS: Insulin LISPRO 300 UNITS/3 ML VIAL SQ SCH ×4 (08:44→21:24)
--- NOTE | 2018-05-19 10:39 | Nephrology Progress Note ---
Date of Encounter: 05/19/18 Time of Encounter: 10:37 - Assessment and Plan (1) Acute kidney injury superimposed on CKD Current Visit: Yes Status: Acute GFR improved to 16, expected with consecutive HD treatment today. Avoid nephrotoxins and renal dose. UOP was noted to be zero yesterday, but I did see 250 yesterday during examination, 450 charted for today. (2) Anemia in CKD (chronic kidney disease) Current Visit: No Status: Acute Goal Hgb is 10-11. Is today 8 today. Qualifiers: Chronic kidney disease stage: stage 3 (moderate) Qualified Code(s): N18.3 - Chronic kidney disease, stage 3 (moderate); D63.1 - Anemia in chronic kidney disease (3) Hyperkalemia Current Visit: Yes Status: Acute K is 3.2 improved. Renal diet, when able to eat. (4) Hypocalcemia Current Visit: Yes Status: Acute Ca is 6.7 today. Ordered Ionized Ca and will replace appropriately. Subjective Principal diagnosis: weakness/shortness of breath Interval history: Pt seen and examined, doing well. Admits to nausea. Appears to be breathing easier than yesterday. Objective - Vital Signs Vital signs: Vital Signs Temp Pulse Resp BP Pulse Ox 05/19/18 08:16 97.7 F 62 17 110/53 96 05/19/18 03:49 97.8 F 60 16 112/50 95 05/18/18 23:43 98 F 63 15 117/75 95 05/18/18 19:44 97.3 F L 68 17 122/59 96 05/18/18 16:15 97.9 F 64 18 139/58 98 05/18/18 14:40 97.2 F L 20 139/53 05/18/18 14:15 110/40 05/18/18 14:00 120/66 05/18/18 13:45 124/55 05/18/18 13:30 119/51 05/18/18 13:15 131/53 05/18/18 13:00 137/70 05/18/18 12:45 131/66 05/18/18 12:30 140/67 05/18/18 12:15 142/57 05/18/18 12:00 152/63 05/18/18 11:45 136/64 05/18/18 11:30 147/57 05/18/18 11:15 97.3 F L 22 153/72 Intake and Output 05/18/18 05/19/18 05/19/18 23:59 07:59 15:59 Output Total 450 / 450 Balance -450 / -450 Output: Catheter 450 / 450 Other: Weight 71.2 kg Blood Glucose* 157 119 - General Appearance General appearance: Present: well-developed, well-nourished EENT: Present: ATNC, hearing intact, vision intact Neck: Present: supple Respiratory: Present: clear Cardiology: Present: no edema, normal S1, normal S2 Dialysis Vascular Access: Venous Catheter (Tunneled Line, DRSG C/D/I) Gastrointestinal: Present: normoactive bowel sounds, no tenderness, no guarding Integumentary: Present: no rash, warm and dry Neurologic: Present: alert and oriented x3 Psychiatric: Present: mood/affect appropriate, cooperative - Lab 05/19/18 05:00 05/19/18 05:00 Most recent lab results ABG pH 7.40 pH Units (7.32-7.45) 05/18/18 16:37 ABG pCO2 46 mmHg (35-45) H 05/18/18 16:37 ABG pO2 91 mmHg (85-104) 05/18/18 16:37 ABG HCO3 28 mEq/L (21-27) H 05/18/18 16:37 ABG O2 Saturation 97 % (95-98) 05/18/18 16:37 Calcium 6.7 mg/dL (8.6-10.3) L 05/19/18 05:00 Phosphorus 5.5 mg/dL (2.7-4.5) H 05/17/18 05:17 Magnesium 1.9 mg/dL (1.6-2.6) 05/17/18 05:17 Urine Creatinine 180 mg/dL 05/16/18 14:01 Urine Sodium 12.0 mEq/L 05/16/18 14:01 Urine Total Protein 35 mg/dL (1-14) H 05/16/18 14:01 Consult Discharge Plan - Plan Referrals: Narciso Kelsey MD [Primary Care Provider] -
[2018-05-19 12:29] LABS: VBG Ionized Calcium 1.06 mmol/L (1.15-1.35)
--- NOTE | 2018-05-19 18:57 | Internal Med Progress Note ---
Hospitalist Progress Note - Encounter Date of Encounter: 05/19/18 Time of Encounter: 11:00 - Subjective Interval History: Patient with history significant for HFpEF,CAD and CKD stage III who presents with shortness of breath found to have acute on chronic stage III kidney disease. Creatinine now improving after starting hemodialysis per nephrology's recommendations Patient with acute hypoxic respiratory failure and now weaning supplemental oxygenation today as tolerates - Exam Vitals: Temp Pulse Resp BP Pulse Ox 98.5 F 53 17 130/69 98 05/19/18 16:19 05/19/18 16:19 05/19/18 16:19 05/19/18 16:19 05/19/18 16:19 Exam: Gen.: Nonacute distress, alert and oriented 3 ENT: Mucosal membranes moist Respiratory: Lungs are clear to auscultation bilaterally without any wheezing rhonchi or rales Cardiovascular: Normal S1 and S2 regular rate rhythm no murmurs rubs or gallops Abdomen: Soft, nontender and nondistended with positive bowel sounds Extremities: No lower extremity edema Skin: Normal color - Assessment and Plan (1) Acute respiratory failure with hypoxia Current Visit: Yes Status: Acute Assessment and Plan: Patient this morning and not requiring supplemental oxygenation at 2 L of nasal cannula Suspect secondary to volume overload and IV fluids was discontinued Weaning supplemental oxygenation today as tolerates (2) Acute kidney injury superimposed on CKD Current Visit: Yes Status: Acute Assessment and Plan: CKD stage III. worsening kidney function possible pre-renal as patient has been having low PO intake for the past 4 weeks due to poor appetite. Will discontinue gentle IV diuresis with 0.45%NS@50mls/hr due to the above Nephrology following with recommendations for hemodialysis (3) Hyperkalemia Current Visit: Yes Status: Acute Assessment and Plan: Secondary to the above. Secondary to renal failure as above and will monitor potassium levels (4) Congestive heart failure (CHF) Current Visit: Yes Status: Acute Assessment and Plan: Repeat echocardiogram pending 2 gram sodium diet. Continue carvedilol 6.25mg/PO BID will hold Isosorbide until BP more stable. (5) Diabetes Current Visit: Yes Status: Chronic Assessment and Plan: Started on Levemir 5 units HS plus Lispro sliding scale low dose. (6) CAD (coronary artery disease) Current Visit: Yes Status: Acute Assessment and Plan: Continue home dose of aspirin, palvix and statin. (7) DVT prophylaxis Current Visit: Yes Status: Acute Assessment and Plan: Started on Heparin 5000 units SubQ BID - Time Spent with Patient Total time spent is greater than 50% in coordination of care (as documented) at patient's floor/unit and/or counseling patient: Internal Medicine: Result - Labs CBC & Chem 7: 05/19/18 05:00 05/19/18 05:00 Labs: Short CBC 05/19/18 Range/Units 05:00 WBC 6.9 (4.3-11.1) K/mcL Hgb 8.0 L D (11.5-15.4) g/dL Hct 24.3 L (35.3-44.9) % Plt Count 80 L (140-400) K/mcL BMP 05/19/18 05:00 Sodium 136 Potassium 3.2 L D Chloride 108 H Carbon Dioxide 22 L BUN 46 H Creatinine 2.76 H Glucose 97 Calcium 6.7 L - ABG Interpretation ABG results: ABG ABG pH 7.40 pH Units (7.32-7.45) 05/18/18 16:37 ABG pCO2 46 mmHg (35-45) H 05/18/18 16:37 ABG pO2 91 mmHg (85-104) 05/18/18 16:37 ABG O2 Saturation 97 % (95-98) 05/18/18 16:37 PT/INR, D-dimer PT 13.1 Seconds (9.4-12.1) H 05/16/18 13:21 - Impressions Impressions Chest X-Ray 05/17/18 14:29 IMPRESSION: Right internal jugular catheter with tip extending to the cavoatrial junction. No pneumothorax. Findings of pulmonary edema with small pleural effusions. 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 transplanted heart: unspecified whether [place] or transplanted heart Associated angina: angina presence unspecified Qualified Code(s): I25.10 - Atherosclerotic heart disease of [place] coronary artery without angina pectoris
[2018-05-19] MEDS: Insulin DETEMIR 100 UNIT/ML X5UNITS SQ SCH (21:23)
[2018-05-20] MEDS: *HR* Heparin 5,000 UNIT/ML VIAL SQ SCH ×2 (05:36→16:53)
[2018-05-20 06:41] LABS: Hemoglobin 8.7 g/dL (11.5-15.4); Mean Corpuscular Volume 103.1 fL (83.0-100.0)
[2018-05-20 06:43] LABS: Hematocrit 26.7 % (35.3-44.9); Immature Platelets 11.8 % (1.1-6.1); Mean Corpuscular HGB Conc 32.6 g/dL (31.6-35.5); Mean Corpuscular Hemoglobin 33.6 pg (28.0-33.3); Mean Platelet Volume 12.8 fL (9.4-12.4); Red Blood Count 2.59 M/mcL (3.82-4.97); Red Cell Distribution Width 15.4 % (11.5-14.5)
[2018-05-20 07:01] LABS: Calcium 8.3 mg/dL (8.6-10.3); Potassium 3.9 mEq/L (3.5-5.1)
[2018-05-20] MEDS: Insulin LISPRO 300 UNITS/3 ML VIAL SQ SCH ×4 (09:44→21:49)
[2018-05-20] MEDS: Ondansetron 4 MG/2 ML VIAL IVP PRN (09:48)
--- NOTE | 2018-05-20 16:12 | Nephrology Progress Note ---
Date of Encounter: 05/20/18 Time of Encounter: 12:00 - Assessment and Plan (1) Acute kidney injury superimposed on CKD Current Visit: Yes Status: Acute Will monitor off HD today and reassess need tomorrow UOP documented [id number] in the past 24hrs, encouraged po fluids Continue to avoid nephrotoxins if possible (2) Anemia in CKD (chronic kidney disease) Current Visit: No Status: Acute Goal Hgb is 10-11. Is today 8.7 today, will monitor. Qualifiers: Chronic kidney disease stage: stage 3 (moderate) Qualified Code(s): N18.3 - Chronic kidney disease, stage 3 (moderate); D63.1 - Anemia in chronic kidney disease (3) Hyperkalemia Current Visit: Yes Status: Acute Resolved (4) Hypocalcemia Current Visit: Yes Status: Acute Calcium better today at 8.3, will monitor Subjective Principal diagnosis: weakness/shortness of breath Interval history: pt seen and examined sitting in chair with family at bedside with no new complaint. Breathing much improved after 3 consecutive HD treatment with approx. 20lbs of fluid removed. Objective - Vital Signs Vital signs: Vital Signs Temp Pulse Resp BP Pulse Ox 05/20/18 10:37 97.8 F 55 18 134/53 99 05/20/18 06:57 97.9 F 69 20 114/56 97 05/20/18 04:07 97.8 F 75 16 123/55 95 05/20/18 01:17 97.9 F 62 16 107/51 94 05/19/18 20:33 98 F 70 15 126/68 95 05/19/18 16:19 98.5 F 53 17 130/69 98 Intake and Output 05/20/18 05/20/18 05/20/18 07:59 15:59 23:59 Intake Total 480 / 480 Balance 480 / 480 Intake: Oral 480 / 480 Other: Meal Lunch Percent of Meal Consumed 40% Stool Size Smear # Bowel Movements 1 Weight 68.5 kg Blood Glucose* 123 128 Patient Weight 05/20/18 23:59 Weight 68.5 kg - General Appearance General appearance: Present: chronically ill (NAD) EENT: Present: ATNC, mucous membranes moist Neck: Present: no JVD, supple Additional Comments: improved areation bilat Cardiology: Present: edema (improving), normal S1, normal S2 Dialysis Vascular Access: Venous Catheter (temp IJ) Gastrointestinal: Present: no tenderness, no guarding Integumentary: Present: warm and dry Neurologic: Present: no focal deficit Musculoskeletal: Present: no deformities Psychiatric: Present: mood/affect appropriate - Lab 05/20/18 04:00 05/20/18 06:30 Most recent lab results ABG pH 7.40 pH Units (7.32-7.45) 05/18/18 16:37 ABG pCO2 46 mmHg (35-45) H 05/18/18 16:37 ABG pO2 91 mmHg (85-104) 05/18/18 16:37 ABG HCO3 28 mEq/L (21-27) H 05/18/18 16:37 ABG O2 Saturation 97 % (95-98) 05/18/18 16:37 Calcium 8.3 mg/dL (8.6-10.3) L 05/20/18 06:30 Phosphorus 5.5 mg/dL (2.7-4.5) H 05/17/18 05:17 Magnesium 1.9 mg/dL (1.6-2.6) 05/17/18 05:17 Urine Creatinine 180 mg/dL 05/16/18 14:01 Urine Sodium 12.0 mEq/L 05/16/18 14:01 Urine Total Protein 35 mg/dL (1-14) H 05/16/18 14:01 Consult Discharge Plan - Plan Referrals: Narciso Kelsey MD [Primary Care Provider] -
--- NOTE | 2018-05-20 19:55 | Internal Med Progress Note ---
Hospitalist Progress Note - Encounter Date of Encounter: 05/20/18 Time of Encounter: 11:00 - Subjective Interval History: Patient with history significant for HFpEF,CAD and CKD stage III who presents with shortness of breath found to have acute on chronic stage III kidney disease. Creatinine now improving after starting hemodialysis per nephrology's recommendations Patient with acute hypoxic respiratory failure and now weaning supplemental oxygenation today as tolerates - Exam Vitals: Temp Pulse Resp BP Pulse Ox 98.2 F 72 18 140/50 92 05/20/18 16:29 05/20/18 16:29 05/20/18 16:29 05/20/18 16:29 05/20/18 16:29 Exam: Gen.: Nonacute distress, alert and oriented 3 ENT: Mucosal membranes moist Respiratory: Lungs are clear to auscultation bilaterally without any wheezing rhonchi or rales Cardiovascular: Normal S1 and S2 regular rate rhythm no murmurs rubs or gallops Abdomen: Soft, nontender and nondistended with positive bowel sounds Extremities: No lower extremity edema Skin: Normal color - Assessment and Plan (1) Acute respiratory failure with hypoxia Current Visit: Yes Status: Acute Assessment and Plan: Patient this morning and not requiring supplemental oxygenation at 2 L of nasal cannula Suspect secondary to volume overload and IV fluids was discontinued Weaning supplemental oxygenation today as tolerates (2) Acute kidney injury superimposed on CKD Current Visit: Yes Status: Acute Assessment and Plan: CKD stage III. worsening kidney function possible pre-renal as patient has been having low PO intake for the past 4 weeks due to poor appetite. IV fluids discontinued due to acute hypoxic respiratory failure above Nephrology following with recommendations for continued hemodialysis (3) Hyperkalemia Current Visit: Yes Status: Acute Assessment and Plan: Secondary to the above. Secondary to renal failure as above and will monitor potassium levels (4) Congestive heart failure (CHF) Current Visit: Yes Status: Acute Assessment and Plan: Repeat echocardiogram showed LVEF of 60% with moderate left ventricular diastolic dysfunction. 2 gram sodium diet. Continue carvedilol 6.25mg/PO BID will hold Isosorbide until BP more stable. (5) Diabetes Current Visit: Yes Status: Chronic Assessment and Plan: Started on Levemir 5 units HS plus Lispro sliding scale low dose. (6) CAD (coronary artery disease) Current Visit: Yes Status: Acute Assessment and Plan: Continue home dose of aspirin, palvix and statin. (7) DVT prophylaxis Current Visit: Yes Status: Acute Assessment and Plan: Started on Heparin 5000 units SubQ BID - Time Spent with Patient Total time spent is greater than 50% in coordination of care (as documented) at patient's floor/unit and/or counseling patient: Internal Medicine: Result - Labs CBC & Chem 7: 05/21/18 05:28 05/21/18 05:28 Labs: Short CBC 05/20/18 Range/Units 04:00 WBC 9.0 (4.3-11.1) K/mcL Hgb 8.7 L (11.5-15.4) g/dL Hct 26.7 L (35.3-44.9) % Plt Count 96 L (140-400) K/mcL BMP 05/20/18 06:30 Sodium 136 Potassium 3.9 Chloride 100 Carbon Dioxide 29 BUN 35 H Creatinine 3.32 H Glucose 122 H Calcium 8.3 L - ABG Interpretation ABG results: ABG ABG pH 7.40 pH Units (7.32-7.45) 05/18/18 16:37 ABG pCO2 46 mmHg (35-45) H 05/18/18 16:37 ABG pO2 91 mmHg (85-104) 05/18/18 16:37 ABG O2 Saturation 97 % (95-98) 05/18/18 16:37 PT/INR, D-dimer PT 13.1 Seconds (9.4-12.1) H 05/16/18 13:21 Consult Discharge Plan - Plan Referrals: Narciso Kelsey MD [Primary Care Provider] - (4) Congestive heart failure (CHF) Qualifiers: Heart failure type: diastolic Heart failure chronicity: chronic Qualified Code(s): I50.32 - Chronic diastolic (congestive) heart failure (5) Diabetes Qualifiers: Diabetes mellitus type: type 2 Diabetes mellitus shelter insulin use: unspecified shelter insulin use status Diabetes mellitus complication status : with unspecified complications Qualified Code(s): E11.8 - Type 2 diabetes mellitus with unspecified complications (6) CAD (coronary artery disease) Qualifiers: Coronary Disease-Associated Artery/Lesion type: unspecified vessel or lesion type [place] vs. transplanted heart: unspecified whether [place] or transplanted heart Associated angina: angina presence unspecified Qualified Code(s): I25.10 - Atherosclerotic heart disease of [place] coronary artery without angina pectoris
[2018-05-20] MEDS: Insulin DETEMIR 100 UNIT/ML X5UNITS SQ SCH (21:50)
[2018-05-21] MEDS: ALPRAZolam 0.5 MG TABLET PO PRN ×2 (00:18→21:13)
[2018-05-21 06:13] LABS: Hematocrit 25.7 % (35.3-44.9); Hemoglobin 8.3 g/dL (11.5-15.4); Mean Corpuscular HGB Conc 32.3 g/dL (31.6-35.5); Mean Corpuscular Hemoglobin 32.7 pg (28.0-33.3); Mean Corpuscular Volume 101.2 fL (83.0-100.0); Mean Platelet Volume 13.3 fL (9.4-12.4); Platelet Count 100 K/mcL (140-400); Red Blood Count 2.54 M/mcL (3.82-4.97); Red Cell Distribution Width 15.1 % (11.5-14.5)
[2018-05-21] MEDS: *HR* Heparin 5,000 UNIT/ML VIAL SQ SCH ×2 (06:15→16:56)
[2018-05-21 06:26] LABS: Calcium 8.1 mg/dL (8.6-10.3); Potassium 3.9 mEq/L (3.5-5.1)
--- NOTE | 2018-05-21 08:04 | Internal Med Progress Note ---
Hospitalist Progress Note - Encounter Date of Encounter: 05/21/18 Time of Encounter: 11:00 - Subjective Interval History: Patient with history significant for HFpEF,CAD and CKD stage III who presents with shortness of breath found to have acute on chronic stage III kidney disease. Patient's acute hypoxic respiratory failure has resolved Renal function without much improvement; on hemodialysis - Exam Vitals: Temp Pulse Resp BP Pulse Ox 98.8 F 58 17 101/57 95 05/21/18 06:02 05/21/18 06:02 05/21/18 06:02 05/21/18 06:02 05/21/18 06:02 Exam: Gen.: Nonacute distress, alert and oriented 3 ENT: Mucosal membranes moist Respiratory: Lungs are clear to auscultation bilaterally without any wheezing rhonchi or rales Cardiovascular: Normal S1 and S2 regular rate rhythm no murmurs rubs or gallops Abdomen: Soft, nontender and nondistended with positive bowel sounds Extremities: No lower extremity edema Skin: Normal color - Assessment and Plan (1) Acute kidney injury superimposed on CKD Current Visit: Yes Status: Acute Assessment and Plan: Serum creatinine:5.61->3.75->2.76->3.32->4.42 GFR: 7->-12->16->13->10 Hemodialysis per nephrology recommendations (2) Acute respiratory failure with hypoxia Current Visit: Yes Status: Acute Assessment and Plan: Resolved; continue to monitor (3) Hyperkalemia Current Visit: Yes Status: Acute (4) Congestive heart failure (CHF) Current Visit: Yes Status: Acute Assessment and Plan: Repeat echocardiogram showed LVEF of 60% with moderate left ventricular diastolic dysfunction. 2 gram sodium diet. Continue carvedilol 6.25mg/PO BID Will hold Isosorbide until BP more stable. (5) Diabetes Current Visit: Yes Status: Chronic Assessment and Plan: Controlled; continue Levemir 5 units HS plus Lispro sliding scale low dose. (6) CAD (coronary artery disease) Current Visit: Yes Status: Acute Assessment and Plan: Continue home dose of aspirin, palvix and statin. (7) DVT prophylaxis Current Visit: Yes Status: Acute Assessment and Plan: Heparin subcutaneous - Time Spent with Patient Total time spent is greater than 50% in coordination of care (as documented) at patient's floor/unit and/or counseling patient: Internal Medicine: Result - Labs CBC & Chem 7: 05/21/18 05:28 05/21/18 05:28 Labs: Short CBC 05/21/18 Range/Units 05:28 WBC 8.5 (4.3-11.1) K/mcL Hgb 8.3 L (11.5-15.4) g/dL Hct 25.7 L (35.3-44.9) % Plt Count 100 L (140-400) K/mcL BMP 05/21/18 05:28 Sodium 130 L Potassium 3.9 Chloride 95 L Carbon Dioxide 26 BUN 49 H Creatinine 4.42 H Glucose 111 H Calcium 8.1 L - ABG Interpretation ABG results: ABG ABG pH 7.40 pH Units (7.32-7.45) 05/18/18 16:37 ABG pCO2 46 mmHg (35-45) H 05/18/18 16:37 ABG pO2 91 mmHg (85-104) 05/18/18 16:37 ABG O2 Saturation 97 % (95-98) 05/18/18 16:37 PT/INR, D-dimer PT 13.1 Seconds (9.4-12.1) H 05/16/18 13:21 Consult Discharge Plan - Plan Referrals: Narciso Kelsey MD [Primary Care Provider] - (4) Congestive heart failure (CHF) Qualifiers: Heart failure type: diastolic Heart failure chronicity: chronic Qualified Code(s): I50.32 - Chronic diastolic (congestive) heart failure (5) Diabetes Qualifiers: Diabetes mellitus type: type 2 Diabetes mellitus long-term insulin use: unspecified 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 transplanted heart: unspecified whether [place] or transplanted heart Associated angina: angina presence unspecified Qualified Code(s): I25.10 - Atherosclerotic heart disease of [place] coronary artery without angina pectoris
[2018-05-21] MEDS: Insulin LISPRO 300 UNITS/3 ML VIAL SQ SCH ×4 (09:13→21:03)
[2018-05-21] MEDS ORDERED: *HR* Heparin 10,000 UNIT/10 ML VIAL IV PRN (09:21)
[2018-05-21] MEDS ORDERED: 0.9 % Sodium Chloride 250 ML IVC PRN (09:21)
[2018-05-21] MEDS ORDERED: 0.9 % Sodium Chloride 2,000 ML ONE (10:09)
--- NOTE | 2018-05-21 10:31 | Nephrology Progress Note ---
Date of Encounter: 05/21/18 Time of Encounter: 10:30 - Assessment and Plan (1) Acute kidney injury superimposed on CKD Current Visit: Yes Status: Acute SCr worse at 4.42, GFR10 after one day of HD, will continue HD today as still no signs of renal recovery If by wednesday and still no renal recovery, will plan permcath palcement Will also start arranging outpatient unit for ongoing HD need Continue to avoid nephrotoxin if possible Continue po fluids (2) Anemia in CKD (chronic kidney disease) Current Visit: No Status: Acute Goal Hgb is 10-11. Is today 8.3 today, will monitor. Qualifiers: Chronic kidney disease stage: stage 3 (moderate) Qualified Code(s): N18.3 - Chronic kidney disease, stage 3 (moderate); D63.1 - Anemia in chronic kidney disease (3) Hyperkalemia Current Visit: Yes Status: Acute Resolved (4) Hypocalcemia Current Visit: Yes Status: Acute Calcium slightly worse again at 8.1, PTH elevated (may need calcitriol) but vitamin D levels still pending Subjective Principal diagnosis: weakness/shortness of breath Interval history: pt seen and examined on HD with no new complaints Objective - Vital Signs Vital signs: Vital Signs Temp Pulse Resp BP Pulse Ox 05/21/18 08:20 97.9 F 50 17 129/71 95 05/21/18 06:02 98.8 F 58 17 101/57 95 05/21/18 01:40 97.6 F 60 16 108/62 93 05/20/18 21:35 97.5 F L 57 15 103/59 93 05/20/18 16:29 98.2 F 72 18 140/50 92 05/20/18 10:37 97.8 F 55 18 134/53 99 Intake and Output 05/20/18 05/21/18 05/21/18 23:59 07:59 15:59 Output Total 75 / 75 Balance -75 / -75 Output: Catheter 75 / 75 Other: Stool Size Small Stool Consistency liquid Stool Color Brown Blood Glucose* 147 109 - General Appearance General appearance: Present: chronically ill EENT: Present: ATNC, mucous membranes moist Neck: Present: no JVD, supple Respiratory: Present: clear Cardiology: Present: edema (improving), normal S1, normal S2 Gastrointestinal: Present: no tenderness, no guarding Integumentary: Present: warm and dry Neurologic: Present: no focal deficit Musculoskeletal: Present: no deformities Psychiatric: Present: mood/affect appropriate, cooperative - Lab 05/22/18 03:42 05/22/18 03:42 Most recent lab results ABG pH 7.40 pH Units (7.32-7.45) 05/18/18 16:37 ABG pCO2 46 mmHg (35-45) H 05/18/18 16:37 ABG pO2 91 mmHg (85-104) 05/18/18 16:37 ABG HCO3 28 mEq/L (21-27) H 05/18/18 16:37 ABG O2 Saturation 97 % (95-98) 05/18/18 16:37 Calcium 8.1 mg/dL (8.6-10.3) L 05/21/18 05:28 Phosphorus 5.5 mg/dL (2.7-4.5) H 05/17/18 05:17 Magnesium 1.9 mg/dL (1.6-2.6) 05/17/18 05:17 Urine Creatinine 180 mg/dL 05/16/18 14:01 Urine Sodium 12.0 mEq/L 05/16/18 14:01 Urine Total Protein 35 mg/dL (1-14) H 05/16/18 14:01 Consult Discharge Plan - Plan Referrals: Narciso Kelsey MD [Primary Care Provider] -
[2018-05-21] MEDS: Insulin DETEMIR 100 UNIT/ML X5UNITS SQ SCH (21:14)
[2018-05-22 04:06] LABS: Hematocrit 24.5 % (35.3-44.9); Immature Platelets 13.8 % (1.1-6.1); Mean Corpuscular HGB Conc 32.7 g/dL (31.6-35.5); Mean Corpuscular Hemoglobin 32.9 pg (28.0-33.3); Mean Corpuscular Volume 100.8 fL (83.0-100.0); Mean Platelet Volume 12.9 fL (9.4-12.4); Red Blood Count 2.43 M/mcL (3.82-4.97); Red Cell Distribution Width 14.9 % (11.5-14.5)
[2018-05-22 04:31] LABS: Potassium 3.6 mEq/L (3.5-5.1)
[2018-05-22] MEDS: *HR* Heparin 5,000 UNIT/ML VIAL SQ SCH ×2 (05:55→17:04)
[2018-05-22] MEDS: Insulin LISPRO 300 UNITS/3 ML VIAL SQ SCH ×4 (08:56→21:48)
--- NOTE | 2018-05-22 09:08 | Internal Med Progress Note ---
Hospitalist Progress Note - Encounter Date of Encounter: 05/22/18 Time of Encounter: 11:00 - Subjective Interval History: Patient with history significant for HFpEF,CAD and CKD stage III who presents with shortness of breath found to have acute on chronic stage III kidney disease. Patient's acute hypoxic respiratory failure has resolved Renal function without much improvement; on hemodialysis Nephrology now with recommendations for permacath placement for outpatient hemodialysis Case management following for placement to SNF - Exam Vitals: Temp Pulse Resp BP Pulse Ox 97.8 F 50 18 124/72 93 05/22/18 08:29 05/22/18 08:29 05/22/18 08:29 05/22/18 08:29 05/22/18 08:29 Exam: Gen.: Nonacute distress, alert and oriented 3 ENT: Mucosal membranes moist Respiratory: Lungs are clear to auscultation bilaterally without any wheezing rhonchi or rales Cardiovascular: Normal S1 and S2 regular rate rhythm no murmurs rubs or gallops Abdomen: Soft, nontender and nondistended with positive bowel sounds Extremities: No lower extremity edema Skin: Normal color - Assessment and Plan (1) Acute kidney injury superimposed on CKD Current Visit: Yes Status: Acute Assessment and Plan: Serum creatinine:5.61->3.75->2.76->3.32->4.42->3.14 GFR: 7->-12->16->13->10->14 Hemodialysis per nephrology recommendations (2) Hyperkalemia Current Visit: Yes Status: Acute Assessment and Plan: Secondary to the above. Secondary to renal failure as above and will monitor potassium levels (3) Acute respiratory failure with hypoxia Current Visit: Yes Status: Acute Assessment and Plan: Resolved; continue to monitor (4) Congestive heart failure (CHF) Current Visit: Yes Status: Acute Assessment and Plan: Repeat echocardiogram showed LVEF of 60% with moderate left ventricular diastolic dysfunction. 2 gram sodium diet. Continue carvedilol 6.25mg/PO BID Will hold Isosorbide until BP more stable. (5) Diabetes Current Visit: Yes Status: Chronic Assessment and Plan: Controlled; continue Levemir 5 units HS plus Lispro sliding scale low dose. (6) CAD (coronary artery disease) Current Visit: Yes Status: Acute Assessment and Plan: Continue home dose of aspirin, palvix and statin. (7) DVT prophylaxis Current Visit: Yes Status: Acute Assessment and Plan: Heparin subcutaneous - Time Spent with Patient Total time spent is greater than 50% in coordination of care (as documented) at patient's floor/unit and/or counseling patient: Internal Medicine: Result - Labs CBC & Chem 7: 05/22/18 03:42 05/22/18 03:42 Labs: Short CBC 05/22/18 Range/Units 03:42 WBC 8.0 (4.3-11.1) K/mcL Hgb 8.0 L (11.5-15.4) g/dL Hct 24.5 L (35.3-44.9) % Plt Count 89 L (140-400) K/mcL BMP 05/22/18 03:42 Sodium 131 L Potassium 3.6 Chloride 95 L Carbon Dioxide 30 H BUN 28 H Creatinine 3.14 H Glucose 77 Calcium 8.0 L - ABG Interpretation ABG results: ABG ABG pH 7.40 pH Units (7.32-7.45) 05/18/18 16:37 ABG pCO2 46 mmHg (35-45) H 05/18/18 16:37 ABG pO2 91 mmHg (85-104) 05/18/18 16:37 ABG O2 Saturation 97 % (95-98) 05/18/18 16:37 PT/INR, D-dimer PT 13.1 Seconds (9.4-12.1) H 05/16/18 13:21 Consult Discharge Plan - Plan Referrals: Narciso Kelsey MD [Primary Care Provider] - (4) Congestive heart failure (CHF) Qualifiers: Heart failure type: diastolic Heart failure chronicity: chronic Qualified Code(s): I50.32 - Chronic diastolic (congestive) heart failure (5) Diabetes Qualifiers: Diabetes mellitus type: type 2 Diabetes mellitus bed bug exterminator insulin use: unspecified bed bug 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 transplanted heart: unspecified whether [place] or transplanted heart Associated angina: angina presence unspecified Qualified Code(s): I25.10 - Atherosclerotic heart disease of [place] coronary artery without angina pectoris
--- NOTE | 2018-05-22 16:16 | Nephrology Progress Note ---
Date of Encounter: 05/22/18 Time of Encounter: 15:00 - Assessment and Plan (1) Acute kidney injury superimposed on CKD Current Visit: Yes Status: Acute SCr better at 3.14 after HD yesterday, will monitor tomorrow for signs of renal recovery Discussed possible permcath need by wednesday if no improvement and potpatient Hd placement Continue to avoid nephrotoxins if possible (2) Anemia in CKD (chronic kidney disease) Current Visit: No Status: Acute Goal Hgb is 10-11. Is today 8.0 today, will monitor. Qualifiers: Chronic kidney disease stage: stage 3 (moderate) Qualified Code(s): N18.3 - Chronic kidney disease, stage 3 (moderate); D63.1 - Anemia in chronic kidney disease (3) Hyperkalemia Current Visit: Yes Status: Acute Resolved (4) Hypocalcemia Current Visit: Yes Status: Acute Calcium slightly worse again at 8.0, PTH elevated (may need calcitriol) but vitamin D levels still pending Subjective Principal diagnosis: weakness/shortness of breath Interval history: pt seen and examined feeling better but tired form lack of sleep last night. drinking more fluids in [facility] Objective - Vital Signs Vital signs: Vital Signs Temp Pulse Resp BP Pulse Ox 05/22/18 13:22 98.5 F 56 17 144/57 97 05/22/18 08:29 97.8 F 50 18 124/72 93 05/22/18 04:50 98.8 F 50 15 122/55 93 05/22/18 00:18 98.8 F 55 18 98/66 95 05/21/18 20:55 97.8 F 62 18 107/36 96 05/21/18 17:04 97.7 F 50 18 114/47 96 Intake and Output 05/22/18 05/22/18 05/22/18 07:59 15:59 23:59 Intake Total 840 / 840 Output Total 90 / 90 Balance -90 / -90 840 / 840 Intake: Oral 840 / 840 Output: Catheter 90 / 90 Other: Meal Lunch Percent of Meal Consumed 65% Blood Glucose* 117 - General Appearance General appearance: Present: chronically ill EENT: Present: ATNC, mucous membranes moist Neck: Present: no JVD, supple Respiratory: Present: clear Cardiology: Present: edema (improved), normal S1, normal S2 Dialysis Vascular Access: Venous Catheter (temp IJ) Gastrointestinal: Present: no tenderness, no guarding Integumentary: Present: warm and dry Neurologic: Present: no focal deficit Musculoskeletal: Present: no deformities Psychiatric: Present: mood/affect appropriate - Lab 05/22/18 03:42 05/22/18 03:42 Most recent lab results ABG pH 7.40 pH Units (7.32-7.45) 05/18/18 16:37 ABG pCO2 46 mmHg (35-45) H 05/18/18 16:37 ABG pO2 91 mmHg (85-104) 05/18/18 16:37 ABG HCO3 28 mEq/L (21-27) H 05/18/18 16:37 ABG O2 Saturation 97 % (95-98) 05/18/18 16:37 Calcium 8.0 mg/dL (8.6-10.3) L 05/22/18 03:42 Phosphorus 5.5 mg/dL (2.7-4.5) H 05/17/18 05:17 Magnesium 1.9 mg/dL (1.6-2.6) 05/17/18 05:17 Urine Creatinine 180 mg/dL 05/16/18 14:01 Urine Sodium 12.0 mEq/L 05/16/18 14:01 Urine Total Protein 35 mg/dL (1-14) H 05/16/18 14:01 Consult Discharge Plan - Plan Referrals: Narciso Kelsey MD [Primary Care Provider] -
[2018-05-22] MEDS: ALPRAZolam 0.5 MG TABLET PO PRN (21:53)
[2018-05-22] MEDS: Insulin DETEMIR 100 UNIT/ML X5UNITS SQ SCH (21:56)
[2018-05-23 05:27] LABS: Hematocrit 22.8 % (35.3-44.9); Hemoglobin 7.7 g/dL (11.5-15.4); Mean Corpuscular HGB Conc 33.8 g/dL (31.6-35.5); Mean Corpuscular Hemoglobin 33.5 pg (28.0-33.3); Mean Corpuscular Volume 99.1 fL (83.0-100.0); Mean Platelet Volume 12.8 fL (9.4-12.4); Platelet Count 102 K/mcL (140-400); Red Cell Distribution Width 14.8 % (11.5-14.5)
[2018-05-23 05:43] LABS: Calcium 8.1 mg/dL (8.6-10.3); Potassium 3.6 mEq/L (3.5-5.1)
[2018-05-23] MEDS: *HR* Heparin 5,000 UNIT/ML VIAL SQ SCH ×2 (06:17→18:47)
[2018-05-23] MEDS: Insulin LISPRO 300 UNITS/3 ML VIAL SQ SCH ×4 (08:08→21:11)
--- NOTE | 2018-05-23 08:52 | Internal Med Progress Note ---
Hospitalist Progress Note - Encounter Date of Encounter: 05/23/18 Time of Encounter: 11:00 - Subjective Interval History: Patient with history significant for HFpEF,CAD and CKD stage III who presents with shortness of breath found to have acute on chronic stage III kidney disease. Patient's acute hypoxic respiratory failure has resolved Renal function without much improvement; on hemodialysis Nephrology now with recommendations for permacath placement for outpatient hemodialysis Case management following for placement to SNF - Exam Vitals: Temp Pulse Resp BP Pulse Ox 98.9 F 55 16 113/65 95 05/23/18 07:22 05/23/18 07:22 05/23/18 07:22 05/23/18 07:22 05/23/18 07:22 Exam: Gen.: Nonacute distress, alert and oriented 3 ENT: Mucosal membranes moist Respiratory: Lungs are clear to auscultation bilaterally without any wheezing rhonchi or rales Cardiovascular: Normal S1 and S2 regular rate rhythm no murmurs rubs or gallops Abdomen: Soft, nontender and nondistended with positive bowel sounds Extremities: No lower extremity edema Skin: Normal color - Assessment and Plan (1) Acute kidney injury superimposed on CKD Current Visit: Yes Status: Acute Assessment and Plan: Serum creatinine:5.61->3.75->2.76->3.32->4.42->3.14->4.03 GFR: 7->-12->16->13->10->14->11 Recommendations for permacath per nephrology for hemodialysis as an outpatient (2) Hyperkalemia Current Visit: Yes Status: Acute Assessment and Plan: Secondary to the above. Secondary to renal failure as above and will monitor potassium levels (3) Acute respiratory failure with hypoxia Current Visit: Yes Status: Acute Assessment and Plan: Resolved; continue to monitor (4) Congestive heart failure (CHF) Current Visit: Yes Status: Acute Assessment and Plan: Repeat echocardiogram showed LVEF of 60% with moderate left ventricular diastolic dysfunction. 2 gram sodium diet. Continue carvedilol 6.25mg/PO BID Will hold Isosorbide until BP more stable. (5) Diabetes Current Visit: Yes Status: Chronic Assessment and Plan: Controlled; continue Levemir 5 units HS plus Lispro sliding scale low dose. (6) CAD (coronary artery disease) Current Visit: Yes Status: Acute Assessment and Plan: Continue home dose of aspirin, palvix and statin. (7) DVT prophylaxis Current Visit: Yes Status: Acute Assessment and Plan: Heparin subcutaneous - Time Spent with Patient Total time spent is greater than 50% in coordination of care (as documented) at patient's floor/unit and/or counseling patient: Internal Medicine: Result - Labs CBC & Chem 7: 05/23/18 04:58 05/23/18 04:58 Labs: Short CBC 05/23/18 Range/Units 04:58 WBC 7.4 (4.3-11.1) K/mcL Hgb 7.7 L (11.5-15.4) g/dL Hct 22.8 L (35.3-44.9) % Plt Count 102 L (140-400) K/mcL BMP 05/23/18 04:58 Sodium 126 L Potassium 3.6 Chloride 91 L Carbon Dioxide 27 BUN 45 H Creatinine 4.03 H Glucose 87 Calcium 8.1 L - ABG Interpretation ABG results: ABG ABG pH 7.40 pH Units (7.32-7.45) 05/18/18 16:37 ABG pCO2 46 mmHg (35-45) H 05/18/18 16:37 ABG pO2 91 mmHg (85-104) 05/18/18 16:37 ABG O2 Saturation 97 % (95-98) 05/18/18 16:37 PT/INR, D-dimer PT 13.1 Seconds (9.4-12.1) H 05/16/18 13:21 Consult Discharge Plan - Plan Referrals: Narciso Kelsey MD [Primary Care Provider] - (4) Congestive heart failure (CHF) Qualifiers: Heart failure type: diastolic Heart failure chronicity: chronic Qualified Code(s): I50.32 - Chronic diastolic (congestive) heart failure (5) Diabetes Qualifiers: Diabetes mellitus type: type 2 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 transplanted heart: unspecified whether [place] or transplanted heart Associated angina: angina presence unspecified Qualified Code(s): I25.10 - Atherosclerotic heart disease of [place] coronary artery without angina pectoris
--- NOTE | 2018-05-23 13:29 | Nephrology Progress Note ---
Date of Encounter: 05/23/18 Time of Encounter: 13:25 - Assessment and Plan (1) Anemia in CKD (chronic kidney disease) Current Visit: No Status: Acute Goal Hgb is 10-11. Is today 7.7 will monitor. Qualifiers: Chronic kidney disease stage: stage 3 (moderate) Qualified Code(s): N18.3 - Chronic kidney disease, stage 3 (moderate); D63.1 - Anemia in chronic kidney disease (2) Hyperkalemia Current Visit: Yes Status: Acute Resolved (3) Acute kidney injury superimposed on CKD Current Visit: Yes Status: Acute No FINAL FINISHER today. Scr is 4.03 up from 3.14. GFR is 11. Last HD was 05/21/18. Will also start arranging outpatient unit for ongoing HD need, Social Service consult placed. Continue to avoid nephrotoxin if possible. Continue po fluids (4) Hypocalcemia Current Visit: Yes Status: Acute 8.1, will trend. Subjective Principal diagnosis: weakness/shortness of breath Interval history: Pt seen and examined, doing well. Feeling much better today. Is on room air. Objective - Vital Signs Vital signs: Vital Signs Temp Pulse Resp BP Pulse Ox 05/23/18 11:08 97.9 F 53 18 133/52 98 05/23/18 07:22 98.9 F 55 16 113/65 95 05/23/18 04:35 98.4 F 54 16 131/68 96 05/23/18 00:42 97.6 F 50 16 110/53 95 05/22/18 19:58 98.7 F 57 17 107/54 97 05/22/18 17:23 98.7 F 51 18 130/65 98 Intake and Output 05/22/18 05/23/18 05/23/18 23:59 07:59 15:59 Intake Total 120 / 120 Balance 120 / 120 Intake: Oral 120 / 120 Other: Meal Lunch Percent of Meal Consumed 95% Stool Size Large Stool Consistency liquid soft Stool Color Brown Weight 70 kg Blood Glucose* 153 90 106 Patient Weight 05/23/18 23:59 Weight 70 kg - General Appearance General appearance: Present: well-developed, well-nourished EENT: Present: ATNC, hearing intact, vision intact Neck: Present: supple Respiratory: Present: clear Cardiology: Present: no edema, normal S1, normal S2 Dialysis Vascular Access: Venous Catheter (Temp line DRSG C/D/I) Gastrointestinal: Present: normoactive bowel sounds, no tenderness, no guarding Integumentary: Present: no rash, warm and dry Neurologic: Present: alert and oriented x3 Psychiatric: Present: mood/affect appropriate, cooperative - Lab 05/23/18 04:58 05/23/18 04:58 Most recent lab results ABG pH 7.40 pH Units (7.32-7.45) 05/18/18 16:37 ABG pCO2 46 mmHg (35-45) H 05/18/18 16:37 ABG pO2 91 mmHg (85-104) 05/18/18 16:37 ABG HCO3 28 mEq/L (21-27) H 05/18/18 16:37 ABG O2 Saturation 97 % (95-98) 05/18/18 16:37 Calcium 8.1 mg/dL (8.6-10.3) L 05/23/18 04:58 Phosphorus 5.5 mg/dL (2.7-4.5) H 05/17/18 05:17 Magnesium 1.9 mg/dL (1.6-2.6) 05/17/18 05:17 Urine Creatinine 180 mg/dL 05/16/18 14:01 Urine Sodium 12.0 mEq/L 05/16/18 14:01 Urine Total Protein 35 mg/dL (1-14) H 05/16/18 14:01 Consult Discharge Plan - Plan Referrals: Narciso Kelsey MD [Primary Care Provider] -
[2018-05-23] MEDS: ALPRAZolam 0.5 MG TABLET PO PRN (21:11)
[2018-05-23] MEDS: Insulin DETEMIR 100 UNIT/ML X5UNITS SQ SCH (21:11)
[2018-05-24 03:55] LABS: Hematocrit 23.1 % (35.3-44.9); Hemoglobin 7.9 g/dL (11.5-15.4); Mean Corpuscular HGB Conc 34.2 g/dL (31.6-35.5); Mean Corpuscular Hemoglobin 32.9 pg (28.0-33.3); Mean Corpuscular Volume 96.3 fL (83.0-100.0); Mean Platelet Volume 12.2 fL (9.4-12.4); Platelet Count 114 K/mcL (140-400); Red Cell Distribution Width 14.6 % (11.5-14.5)
[2018-05-24 04:16] LABS: Calcium 8.2 mg/dL (8.6-10.3); Potassium 3.8 mEq/L (3.5-5.1)
[2018-05-24] MEDS: *HR* Heparin 5,000 UNIT/ML VIAL SQ SCH ×2 (05:19→17:35)
[2018-05-24] MEDS ORDERED: *HR* Heparin 10,000 UNIT/10 ML VIAL IV PRN (08:19)
[2018-05-24] MEDS ORDERED: 0.9 % Sodium Chloride 250 ML IVC PRN (08:19)
[2018-05-24] MEDS ORDERED: 0.9 % Sodium Chloride 1,000 ML PRIME SCH (08:30)
[2018-05-24] MEDS: Insulin LISPRO 300 UNITS/3 ML VIAL SQ SCH ×4 (08:41→20:53)
--- NOTE | 2018-05-24 08:44 | Internal Med Progress Note ---
Hospitalist Progress Note - Encounter Date of Encounter: 05/24/18 Time of Encounter: 08:42 - Subjective Interval History: Patient seen and evaluated at bedside, she reports feeling well, but reports feeling a little nauseated, denies chest pain, or shortness of breath. - Exam Vitals: Temp Pulse Resp BP Pulse Ox 98.4 F 86 16 129/50 96 05/24/18 07:00 05/24/18 07:00 05/24/18 07:00 05/24/18 07:00 05/24/18 07:00 Exam: General: Alert and oriented x4. In no acute distress. Skin: right IJ permacath, clean dressing. Cardiovascular: RRR, Normal S1 & S2, no rubs, murmurs or gallops. Lungs: Clear to auscultation bilaterally, no wheezes or crackles. Abdomen: Obese, Soft, non-tender, no rigidity. NABS in all 4 quadrants Extremities: No deformity, no edema or tenderness, no joint swelling or clubbing. Neurological: Normal cognition and motor skills. CN II-XII intact. Rest of the physical exam is non contributory - Assessment and Plan (1) Acute kidney injury superimposed on CKD Current Visit: Yes Status: Acute Assessment and Plan: Patient started on renal replacement therapy during this admission. Continue plan of care as per nephrology recommendations. Pending Permacath placement. (2) Congestive heart failure (CHF) Current Visit: Yes Status: Acute Assessment and Plan: In No acute exacerbation. Continue carvedilol 6.25 mg twice a day. Water restriction to 1.5 L today. Strict ins and outs and daily weight. (3) Diabetes Current Visit: Yes Status: Chronic Assessment and Plan: Blood sugar has been well controlled. Patient on Levemir 5units HS, Lispro sliding scale. Continue current therapy. (4) CAD (coronary artery disease) Current Visit: Yes Status: Acute Assessment and Plan: Continue Plavix and atorvastatin. (5) DVT prophylaxis Current Visit: Yes Status: Acute Assessment and Plan: On heparin 5000 units subcutaneous twice a day. (6) Acute respiratory failure with hypoxia Current Visit: Yes Status: Resolved (7) Hyperkalemia Current Visit: Yes Status: Resolved - Summary of Assessment and Plan Summary of Assessment and Plan: Patient to remain in the hospital. Pending outpatient HD seat. - Time Spent with Patient Total time spent is greater than 50% in coordination of care (as documented) at patient's floor/unit and/or counseling patient: 25 - 35 minutes Plan of Care Discussed with: patient Internal Medicine: Result - Labs CBC & Chem 7: 05/24/18 03:35 05/24/18 03:35 Labs: Short CBC 05/24/18 Range/Units 03:35 WBC 7.3 (4.3-11.1) K/mcL Hgb 7.9 L (11.5-15.4) g/dL Hct 23.1 L (35.3-44.9) % Plt Count 114 L (140-400) K/mcL BMP 05/24/18 03:35 Sodium 124 L Potassium 3.8 Chloride 89 L Carbon Dioxide 24 BUN 59 H Creatinine 4.34 H Glucose 81 Calcium 8.2 L - ABG Interpretation ABG results: ABG ABG pH 7.40 pH Units (7.32-7.45) 05/18/18 16:37 ABG pCO2 46 mmHg (35-45) H 05/18/18 16:37 ABG pO2 91 mmHg (85-104) 05/18/18 16:37 ABG O2 Saturation 97 % (95-98) 05/18/18 16:37 PT/INR, D-dimer PT 13.1 Seconds (9.4-12.1) H 05/16/18 13:21 Consult Discharge Plan - Plan Referrals: Narciso Kelsey MD [Primary Care Provider] - (2) Congestive heart failure (CHF) Qualifiers: Heart failure type: diastolic Heart failure chronicity: chronic Qualified Code(s): I50.32 - Chronic diastolic (congestive) heart failure (3) Diabetes Qualifiers: Diabetes mellitus type: type 2 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 transplanted heart: unspecified whether [place] or transplanted heart Associated angina: angina presence unspecified Qualified Code(s): I25.10 - Atherosclerotic heart disease of [place] coronary artery without angina pectoris
[2018-05-24 09:30] LABS: INR 1.2; Prothrombin Time 13.8 Seconds (9.4-12.1)
--- NOTE | 2018-05-24 10:55 | Nephrology Progress Note ---
Date of Encounter: 05/24/18 Time of Encounter: 10:52 - Assessment and Plan (1) Anemia in CKD (chronic kidney disease) Current Visit: No Status: Acute Goal Hgb is 10-11. Is today 7.9 will monitor. Qualifiers: Chronic kidney disease stage: stage 3 (moderate) Qualified Code(s): N18.3 - Chronic kidney disease, stage 3 (moderate); D63.1 - Anemia in chronic kidney disease (2) Hyperkalemia Current Visit: Yes Status: Resolved Resolved (3) Acute kidney injury superimposed on CKD Current Visit: Yes Status: Acute HD in progress today. Scr is 4.34 and GFR is 10. Last HD was 05/21/18. Will also start arranging outpatient unit for ongoing HD need, Social Service consult placed. Continue to avoid nephrotoxin if possible. Continue po fluids (4) Hypocalcemia Current Visit: Yes Status: Acute 8.1, will trend. Subjective Principal diagnosis: weakness/shortness of breath Interval history: Pt seen and examined during HD, tolerating well. Discussed where she might go for outpatient HD. She wishes to have 2nd shift so the [facility] volunteers can take her back and forth. Objective - Vital Signs Vital signs: Vital Signs Temp Pulse Resp BP Pulse Ox 05/24/18 10:30 115/42 05/24/18 10:15 122/47 05/24/18 10:00 119/47 05/24/18 09:45 115/45 05/24/18 09:30 123/48 05/24/18 09:15 126/49 05/24/18 09:00 98.1 F 16 133/53 05/24/18 07:00 98.4 F 86 16 129/50 96 05/24/18 03:40 97.5 F L 61 16 123/59 94 05/23/18 23:38 98.1 F 57 16 131/58 97 05/23/18 19:52 97.4 F L 56 16 147/59 96 05/23/18 16:06 98.0 F 51 16 145/53 98 05/23/18 11:08 97.9 F 53 18 133/52 98 Intake and Output 05/23/18 05/24/18 05/24/18 23:59 07:59 15:59 Intake Total 600 / 600 Output Total 375 / 375 Balance -375 / -375 600 / 600 Intake: Intake, Rinseback and Flushes 600 / 600 Output: Catheter 375 / 375 Other: Weight 71 kg Blood Glucose* 154 96 Hemodialysis Net Fluid Removed 1540 (mL) - General Appearance General appearance: Present: well-developed, well-nourished EENT: Present: ATNC, hearing intact, vision intact Neck: Present: supple Respiratory: Present: clear Cardiology: Present: no edema, normal S1, normal S2 Dialysis Vascular Access: Venous Catheter (Temp line, DRSG c/D/i) Gastrointestinal: Present: normoactive bowel sounds, no tenderness, no guarding Integumentary: Present: no rash, warm and dry Neurologic: Present: alert and oriented x3 Psychiatric: Present: mood/affect appropriate, cooperative - Lab 05/24/18 03:35 05/24/18 03:35 Most recent lab results ABG pH 7.40 pH Units (7.32-7.45) 05/18/18 16:37 ABG pCO2 46 mmHg (35-45) H 05/18/18 16:37 ABG pO2 91 mmHg (85-104) 05/18/18 16:37 ABG HCO3 28 mEq/L (21-27) H 05/18/18 16:37 ABG O2 Saturation 97 % (95-98) 05/18/18 16:37 Calcium 8.2 mg/dL (8.6-10.3) L 05/24/18 03:35 Phosphorus 5.5 mg/dL (2.7-4.5) H 05/17/18 05:17 Magnesium 1.9 mg/dL (1.6-2.6) 05/17/18 05:17 Urine Creatinine 180 mg/dL 05/16/18 14:01 Urine Sodium 12.0 mEq/L 05/16/18 14:01 Urine Total Protein 35 mg/dL (1-14) H 05/16/18 14:01 Consult Discharge Plan - Plan Referrals: Narciso Kelsey MD [Primary Care Provider] -
[2018-05-24] MEDS ORDERED: Heparin 1,000 UNITS/500 mL 500 ML ONE (12:34)
[2018-05-24] MEDS ORDERED: CeFAZolin Premix DUPLEX 2,000 MG/50 ML BAG IVPB ONE (13:17)
[2018-05-24] MEDS ORDERED: *HR* FentaNYL (PF) 100 MCG/2 ML VIAL IVP ONE (13:17)
[2018-05-24] MEDS ORDERED: 0.9 % Sodium Chloride 500 ML ONE (13:34)
[2018-05-24] MEDS ORDERED: *HR* Heparin 5,000 UNIT/ML VIAL ONE (14:09)
[2018-05-24] MEDS: Ondansetron 4 MG/2 ML VIAL IVP PRN (14:44)
--- NOTE | 2018-05-24 15:33 | IR Procedure Note ---
Date of procedure: 05/24/18 Consent Obtained: Verbal consent, Written consent Timeout: Correct patient and procedure verified, Correct site verified, Time out performed, Skin prep completed Local anesthetic: Lidocaine 1% Indications: senior care dialysis Procedure Performed: right ij permacath Was there an student assistant present: Yes Cable Way Operator: Jorgito Barrera Site/Technique: right IJ Results/Findings: right ij 19 cm tip to cuff Estimated blood loss (cc): 0 Complications: None; Tolerated procedure well Post Procedure Treatment Plan: ok to use catheter Specimen: NA
[2018-05-24] MEDS: Insulin DETEMIR 100 UNIT/ML X5UNITS SQ SCH (20:53)
[2018-05-24] MEDS: ALPRAZolam 0.5 MG TABLET PO PRN (22:41)
[2018-05-25] MEDS: *HR* Heparin 5,000 UNIT/ML VIAL SQ SCH ×2 (04:38→16:27)
[2018-05-25 07:37] LABS: Basophils % 0.2 %; Eosinophils # 0.2 K/mcL (0.0-0.6); Eosinophils % 2.8 %; Hematocrit 25.9 % (35.3-44.9); Hemoglobin 8.5 g/dL (11.5-15.4); Immature Granulocytes % 0.5 % (0-4); Lymphocytes # 0.7 K/mcL (0.6-4.6); Lymphocytes % 10.7 %; Mean Corpuscular HGB Conc 32.8 g/dL (31.6-35.5); Mean Corpuscular Hemoglobin 33.2 pg (28.0-33.3); Mean Corpuscular Volume 101.2 fL (83.0-100.0); Mean Platelet Volume 12.6 fL (9.4-12.4); Monocytes # 0.7 K/mcL (0.0-1.3); Monocytes % 11.6 %; Neutrophils # 4.6 K/mcL (1.6-8.9); Platelet Count 143 K/mcL (140-400); Red Blood Count 2.56 M/mcL (3.82-4.97); Red Cell Distribution Width 14.9 % (11.5-14.5); Segmented Neutrophils % 74.2 %
[2018-05-25 07:55] LABS: Magnesium 1.8 mg/dL (1.6-2.6); Phosphorous 3.6 mg/dL (2.7-4.5)
[2018-05-25 08:24] LABS: Calcium 8.4 mg/dL (8.6-10.3); Potassium 3.7 mEq/L (3.5-5.1)
[2018-05-25] MEDS: Insulin LISPRO 300 UNITS/3 ML VIAL SQ SCH ×2 (08:45→12:40)
--- NOTE | 2018-05-25 09:14 | Discharge Summary ---
- NOTES TO OUTPATIENT PROVIDER Notes to Outpatient Provider: Continue Renal replacement therapy as per Nephrology recommendations. Orders not resulted at time of discharge: Pending orders 05/26/18 04:00 BMP [Basic Metabolic Panel] AM 0400 Complete Blood Count w/o Diff [HEME] AM 0400 05/27/18 04:00 BMP [Basic Metabolic Panel] AM 0400 Complete Blood Count w/o Diff [HEME] AM 0400 05/28/18 04:00 BMP [Basic Metabolic Panel] AM 0400 Complete Blood Count w/o Diff [HEME] AM 0400 05/29/18 04:00 BMP [Basic Metabolic Panel] AM 0400 Complete Blood Count w/o Diff [HEME] AM 0400 Date of Encounter: 05/25/18 Time of Encounter: 09:09 - Discharge Diagnosis (1) Acute kidney injury superimposed on CKD Priority: Primary Status: Acute Assessment and Plan: Requiring renal replacement therapy during this admission. 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 transplanted heart: unspecified whether [place] or transplanted heart Associated angina: angina presence unspecified Qualified Code(s): I25.10 - Atherosclerotic heart disease of [place] coronary artery without angina pectoris (5) DVT prophylaxis Priority: Secondary Status: Acute (6) Acute respiratory failure with hypoxia Priority: Secondary Status: Resolved (7) Hyperkalemia Priority: Secondary Status: Resolved Hospital course: Ms. Roland is a 83 year old female PMH significant for HFpEF, HT, CKD stage III, Macular degeneration, CAD s/p two [place] the last one being about 10 years ago. Patient presented to the hospital due to generalized weakness associated with weight gain and shortness of breath despite poor appetite. Patient found to be in acute/Chronic kidney failure. Te kidney function did not improve with gentle IV hydration for which the patient needed to be started on hemodialysis during this admission. Patient is scheduled to continue with renal replacement therapy M,W,F as per nephrology recommendations. ON 05/24/18 a right IJ permacath was inserted for continuation of outpatient renal replacement therapy. Patient received HD yesterday. Patient is hemodynamically stable, to be discharged. He was recommended for the patient to go to rehabilitation, but the patient prefers to go home with home health and PT OT as discussed DVT that she wanted to go does not have a bed available. - Time Spent with Patient Total time spent providing and/or coordinating discharge services: Less than 30 minutes - Discharge Medications Home Medications: ALPRAZolam [Xanax 0.5 MG Tablet] 0.5 mg PO HS 05/05/18 [History] Alendronate Sodium [Fosamax] 70 mg PO QWEEK 05/05/18 [History] Allopurinol [Zyloprim 100 MG] 100 mg PO DAILY 05/05/18 [History] Ascorbate Calcium/Bioflavonoid [Laura-C 500 mg Tablet] 1 each PO DAILY 05/05/18 [History] Atorvastatin [Lipitor] 40 mg PO HS 05/05/18 [History] Carvedilol 12.5 tab PO BID 05/05/18 [History] Clopidogrel [Plavix] 75 mg PO DAILY 05/05/18 [History] Gabapentin [Neurontin] 300 mg PO BID 05/05/18 [History] Glucosamn/Condroitn/C/Mn/[place] [[facility] Glucosamine Chondroit Cplt] 1 each PO DAILY 05/05/18 [History] Hydralazine HCl 50 mg PO TID 05/05/18 [History] Insulin ASPART [NovoLOG] 10 - 20 unit SQ TIDWM 05/05/18 [History] Isosorbide MONOnitrate (24 HR) [Imdur] 60 mg PO DAILY 05/05/18 [History] Meclizine HCl [Verticalm] 25 mg PO DAILY PRN 05/05/18 [History] Nitroglycerin [Nitrostat] 0.4 mg SL PRN PRN 05/05/18 [History] Olmesartan Medoxomil [Benicar] 40 mg PO DAILY 05/05/18 [History] [place]-3S/Dha/Epa/Fish Oil [Fish Oil [place]-3 Softgel] 1 each PO BID 05/05/18 [ History] Ubidecarenone/Vit E Acetate [Co Q-10 100 mg Softgel] 300 mg PO DAILY 05/05/18 [ History] Vitamin B Complex Vit C No.4 [Super B Complex] 1 tab PO DAILY 05/05/18 [History] Insulin Degludec [Tresiba Flextouch U-100] 10 - 16 unit SQ HS 05/16/18 [History] Insulin DETEMIR [Levemir] 5 unit SQ HS [id number] 05/25/18 [Rx] Allergies/Adverse Reactions: 3 Allergy/AdvReac Type Severity Reaction Status Date / Time Iodinated Contrast- Oral and Allergy Anaphylaxis Verified 05/16/18 12:16 IV Dye aspirin AdvReac Nose Bleed Verified 05/16/18 12:16 chlorthalidone AdvReac OTHER Verified 05/16/18 12:16 codeine AdvReac Vomiting Verified 05/16/18 12:16 pregabalin [From Lyrica] AdvReac other Verified 05/16/18 12:16 tramadol AdvReac Headache Verified 05/16/18 12:16 Date of admission: 05/16/18 16:04 Primary care physician: Narciso Kelsey MD Consults: 05/17/18 11:58 Consult to Interventional Radiology [CONS] Routine Consulting Provider: Radiology Interventional Cols Reason for Consult: please place temp line for HD. Time Notified: 11:59 Call Completed: Yes 05/17/18 12:11 Consult to Film Historian [CONS] Routine Reason for SW Consult: POA paperwork. 05/17/18 14:30 Consult to Dialysis [CONS] ONCE 05/18/18 10:00 Consult to Dialysis [CONS] ONCE 05/18/18 11:47 Consult to Nutrition [CONS] Routine Comment: Consulting Provider: NUTRITION Reason for Dietary Consult: PO Supplementation 05/19/18 08:00 Consult to Dialysis [CONS] ONCE 05/19/18 10:47 Consult to Occupational Therapy [CONS] Routine Comment: Evaluate, develop and implement POC Reason for Consult: eval for poss ecf Does patient have active BEDREST order?: No Is patient medically & hemodynamically stable?: Yes Consult to Physical Therapy [CONS] Routine Comment: Evaluate, develop and implement POC Reason for Consult: eval for poss ecf Does patient have active BEDREST order?: No Is patient medically & hemodynamically stable?: Yes 05/21/18 10:00 Consult to Dialysis [CONS] ONCE 05/23/18 13:28 Consult to Film Historian [CONS] Routine Reason for SW Consult: Possible ECF and need for outpatient HD. Thanks 05/24/18 08:30 Consult to Dialysis [CONS] ONCE 05/24/18 08:46 Consult to Interventional Radiology [CONS] Routine Consulting Provider: Radiology Interventional Cols Reason for Consult: Placement HD access. Call Completed: No - Constitutional Vitals: Temp Pulse Resp BP Pulse Ox 98.2 F 66 16 140/61 91 05/25/18 07:53 05/25/18 07:53 05/25/18 07:53 05/25/18 07:53 05/25/18 07:53 Exam: General: Alert and oriented x4. In no acute distress. Skin: right IJ permacath, clean dressing. Cardiovascular: RRR, Normal S1 & S2, no rubs, murmurs or gallops. Lungs: Mild crackles at the left lower base, no wheezes. Abdomen: Obese, Soft, non-tender, no rigidity. NABS in all 4 quadrants Extremities: No deformity, no edema or tenderness, no joint swelling or clubbing. Neurological: Normal cognition and motor skills. CN II-XII intact. Rest of the physical exam is non contributory - Patient Status Disposition: Home Health Service Condition: Good Functional capacity at discharge: independent ambulation Overall status at discharge: patient is progressing back to baseline - Discharge Instructions Follow Up With: Narciso Kelsey MD [Primary Care Provider] - - Diet and Activity Activity: as per physical therapy Diet: diabetic diet
--- NOTE | 2018-05-25 10:08 | Nephrology Progress Note ---
Date of Encounter: 05/25/18 Time of Encounter: 10:03 - Assessment and Plan (1) Anemia in CKD (chronic kidney disease) Current Visit: No Status: Acute Goal Hgb is 10-11. Is today 8.5, will monitor. Qualifiers: Chronic kidney disease stage: stage 3 (moderate) Qualified Code(s): N18.3 - Chronic kidney disease, stage 3 (moderate); D63.1 - Anemia in chronic kidney disease (2) Hyperkalemia Current Visit: Yes Status: Resolved Resolved (3) Acute kidney injury superimposed on CKD Current Visit: Yes Status: Acute HD completed yesterday. Pt would like to go to [facility] if possible. She does have a chair time at [facility], 5:45 TTS. Would encourage to d/c Morales for voiding trial. Continue to avoid nephrotoxin if possible. (4) Hypocalcemia Current Visit: Yes Status: Acute 8.4, will trend. Subjective Principal diagnosis: weakness/shortness of breath Interval history: Pt seen and examined doing well. Denies SOB. Is sitting up in chair on room air. Objective - Vital Signs Vital signs: Vital Signs Temp Pulse Resp BP Pulse Ox 05/25/18 07:53 98.2 F 66 16 140/61 91 05/25/18 04:36 98.9 F 57 16 121/58 91 05/24/18 20:11 98.4 F 62 16 104/55 90 05/24/18 15:15 98.2 F 67 16 118/54 90 05/24/18 14:07 67 145/71 98 05/24/18 14:02 68 138/61 97 05/24/18 13:58 68 145/77 99 05/24/18 13:52 66 129/52 100 05/24/18 13:47 60 132/64 100 05/24/18 13:43 64 132/62 100 05/24/18 13:40 64 126/62 100 05/24/18 12:50 97.1 F L 16 102/38 05/24/18 12:30 108/40 05/24/18 12:15 117/45 05/24/18 12:00 111/43 05/24/18 11:45 122/43 05/24/18 11:30 125/55 05/24/18 11:15 123/49 05/24/18 11:00 122/44 05/24/18 10:45 124/47 05/24/18 10:30 115/42 05/24/18 10:15 122/47 Intake and Output 05/24/18 05/25/18 05/25/18 23:59 07:59 15:59 Intake Total 240 / 240 Balance 240 / 240 Intake: Oral 240 / 240 Other: Meal Dinner Percent of Meal Consumed 75% Blood Glucose* 195 171 - General Appearance General appearance: Present: well-developed, well-nourished EENT: Present: ATNC, hearing intact, vision intact Neck: Present: supple Cardiology: Present: no edema, normal S1, normal S2 Dialysis Vascular Access: Venous Catheter Gastrointestinal: Present: normoactive bowel sounds, no tenderness, no guarding Integumentary: Present: no rash, warm and dry Neurologic: Present: alert and oriented x3 Psychiatric: Present: mood/affect appropriate, cooperative - Lab 05/25/18 06:24 05/25/18 06:24 Most recent lab results ABG pH 7.40 pH Units (7.32-7.45) 05/18/18 16:37 ABG pCO2 46 mmHg (35-45) H 05/18/18 16:37 ABG pO2 91 mmHg (85-104) 05/18/18 16:37 ABG HCO3 28 mEq/L (21-27) H 05/18/18 16:37 ABG O2 Saturation 97 % (95-98) 05/18/18 16:37 Calcium 8.4 mg/dL (8.6-10.3) L 05/25/18 06:24 Phosphorus 3.6 mg/dL (2.7-4.5) 05/25/18 06:24 Magnesium 1.8 mg/dL (1.6-2.6) 05/25/18 06:24 Urine Creatinine 180 mg/dL 05/16/18 14:01 Urine Sodium 12.0 mEq/L 05/16/18 14:01 Urine Total Protein 35 mg/dL (1-14) H 05/16/18 14:01 Consult Discharge Plan - Plan Referrals: Narciso Kelsey MD [Primary Care Provider] - ([facility]
[2018-05-25 12:08] VITALS: BP 123/68
--- NOTE | 2018-05-25 15:56 | Physician Discharge Referral ---
ExtendedCare Referral Info Transfer To: [facility] - Diagnosis (1) Acute kidney injury superimposed on CKD Priority: Primary Status: Acute (2) Congestive heart failure (CHF) Priority: Secondary Status: Acute (3) Diabetes Priority: Secondary Status: Chronic (4) CAD (coronary artery disease) Priority: Secondary Status: Chronic (5) DVT prophylaxis Priority: Secondary Status: Acute (6) Acute respiratory failure with hypoxia Priority: Secondary Status: Resolved (7) Hyperkalemia Priority: Secondary Status: Resolved - Transfer Medications Home Medications: ALPRAZolam [Xanax 0.5 MG Tablet] 0.5 mg PO HS 05/05/18 [History] Alendronate Sodium [Fosamax] 70 mg PO QWEEK 05/05/18 [History] Allopurinol [Zyloprim 100 MG] 100 mg PO DAILY 05/05/18 [History] Ascorbate Calcium/Bioflavonoid [Laura-C 500 mg Tablet] 1 each PO DAILY 05/05/18 [History] Atorvastatin [Lipitor] 40 mg PO HS 05/05/18 [History] Carvedilol 12.5 tab PO BID 05/05/18 [History] Clopidogrel [Plavix] 75 mg PO DAILY 05/05/18 [History] Gabapentin [Neurontin] 300 mg PO BID 05/05/18 [History] Glucosamn/Condroitn/C/Mn/Willis [Cvs Glucosamine Chondroit Cplt] 1 each PO DAILY 05/05/18 [History] Hydralazine HCl 50 mg PO TID 05/05/18 [History] Insulin ASPART [NovoLOG] 10 - 20 unit SQ TIDWM 05/05/18 [History] Isosorbide MONOnitrate (24 HR) [Imdur] 60 mg PO DAILY 05/05/18 [History] Meclizine HCl [Verticalm] 25 mg PO DAILY PRN 05/05/18 [History] Nitroglycerin [Nitrostat] 0.4 mg SL PRN PRN 05/05/18 [History] Olmesartan Medoxomil [Benicar] 40 mg PO DAILY 05/05/18 [History] [place]-3S/Dha/Epa/Fish Oil [Fish Oil [place]-3 Softgel] 1 each PO BID 05/05/18 [ History] Ubidecarenone/Vit E Acetate [Co Q-10 100 mg Softgel] 300 mg PO DAILY 05/05/18 [ History] Vitamin B Complex Vit C No.4 [Super B Complex] 1 tab PO DAILY 05/05/18 [History] Insulin Degludec [Tresiba Flextouch U-100] 10 - 16 unit SQ HS 05/16/18 [History] Insulin DETEMIR [Levemir] 5 unit SQ HS [id number] 05/25/18 [Rx] Allergies/Adverse Reactions: 3 Allergy/AdvReac Type Severity Reaction Status Date / Time Iodinated Contrast- Oral and Allergy Anaphylaxis Verified 05/16/18 12:16 IV Dye aspirin AdvReac Nose Bleed Verified 05/16/18 12:16 chlorthalidone AdvReac OTHER Verified 05/16/18 12:16 codeine AdvReac Vomiting Verified 05/16/18 12:16 pregabalin [From Lyrica] AdvReac other Verified 05/16/18 12:16 tramadol AdvReac Headache Verified 05/16/18 12:16 - Respiratory Orders None Smoking Cessation: Smoking cessation has been advised. For more information, call the [place] Tobacco Quit Line at 5-796-HCLY-NOW. - Advance Directives Code Status: Full Code - Mobility Orders Ambulate - Rehabiliation Orders Rehab Potential: Good Rehab Orders: Evaluation for Physical Therapy, Evaluation for Occupational Therapy - Diet Orders Regular CERTIFICATION: I certify that the transfer of the above named patient to an Extended Care Facility is necessary for the continuing treatment of the diagnosis listed. The above information is true and accurate reflection of patient's current condition. Confidential - Redisclosure prohibited without a patient's written consent.
== END 2018-05-25 18:14 | disposition home health service (06) | DRG 682 ==
LOC: EMEROOARM 12:54 → SUATTDRO 16:04 → 2ANU 16:04
PROVIDERS: ADMIT Internal Medicine; ATTEND Internal Medicine
PROC: IRPERMA (2018-05-24 12:00)

== ENCOUNTER 2019-07-29 08:55 | Inpatient (IN) ==
[2019-07-29 09:50] LABS: Basophils % 0.5 %; Eosinophils # 0.1 K/mcL (0.0-0.6); Eosinophils % 1.7 %; Hematocrit 36.4 % (35.3-44.9); Hemoglobin 12.3 g/dL (11.5-15.4); Immature Granulocytes % 0.4 % (0-4); Lymphocytes # 0.7 K/mcL (0.6-4.6); Lymphocytes % 9.9 %; Mean Corpuscular HGB Conc 33.8 g/dL (31.6-35.5); Mean Corpuscular Hemoglobin 39.3 pg (28.0-33.3); Mean Corpuscular Volume 116.3 fL (83.0-100.0); Mean Platelet Volume 10.6 fL (9.4-12.4); Monocytes # 0.4 K/mcL (0.0-1.3); Monocytes % 5.8 %; Neutrophils # 6.1 K/mcL (1.6-8.9); Platelet Count 178 K/mcL (140-400); Red Blood Count 3.13 M/mcL (3.82-4.97); Red Cell Distribution Width 15.7 % (11.5-14.5); Segmented Neutrophils % 81.7 %; White Blood Count 7.5 K/mcL (4.3-11.1)
[2019-07-29 09:57] LABS: INR 1.1; Prothrombin Time 12.2 Seconds (9.4-12.1)
[2019-07-29 10:00] LABS: Activated Partial Thrombo Time 34.6 Seconds (26.0-36.0)
[2019-07-29 10:10] LABS: Calcium 9.7 mg/dL (8.6-10.3); Magnesium 2.2 mg/dL (1.6-2.6); Troponin I 0.07 ng/mL (< 0.04)
[2019-07-29] MEDS ORDERED: Naloxone 0.4 MG/ML INJ IVP PRN (11:10)
[2019-07-29] MEDS ORDERED: 0.9 % Sodium Chloride 250 ML IVC ONE (11:30)
[2019-07-29] MEDS ORDERED: D5% in Water 1,000 ML IVC PRN (11:47)
[2019-07-29] MEDS ORDERED: Dextrose Gel 15 GM/37.5 ML TUBE PO PRN ×2 (11:47)
[2019-07-29] MEDS ORDERED: *HR* Dextrose 50 % in Water (Syg) 50 ML SYRINGE IVP PRN (11:47)
[2019-07-29] MEDS ORDERED: 0.9 % Sodium Chloride 250 ML IV ONE (15:00)
[2019-07-29 16:31] LABS: Hemoglobin 11.4 g/dL (11.5-15.4)
[2019-07-29] MEDS: Insulin LISPRO 300 UNITS/3 ML VIAL SQ SCH (17:09)
[2019-07-29] MEDS ORDERED: 0.9 % Sodium Chloride 250 ML IVC PRN (19:19)
[2019-07-29] MEDS ORDERED: 0.9 % Sodium Chloride 1,000 ML PRIME SCH (19:30)
[2019-07-29] MEDS ORDERED: Albumin 25% 25gram/100mL 25 GM/100 ML IV.SOLN ONE (20:49)
[2019-07-29 21:51] LABS: Hepatitis B Surface Antibody < 3.10 mIU/mL
[2019-07-29 22:02] LABS: Hepatitis B Surface Antigen Nonreactive (Nonreactive)
[2019-07-30] MEDS ORDERED: Methyl Salicylate/Menthol 57 APPL/57 GM TUBE TP PRN (04:28)
[2019-07-30 06:34] LABS: Basophils % 0.7 %; Eosinophils # 0.1 K/mcL (0.0-0.6); Eosinophils % 1.8 %; Hematocrit 31.2 % (35.3-44.9); Hemoglobin 10.4 g/dL (11.5-15.4); Immature Granulocytes % 0.5 % (0-4); Lymphocytes # 0.7 K/mcL (0.6-4.6); Mean Corpuscular HGB Conc 33.3 g/dL (31.6-35.5); Mean Corpuscular Hemoglobin 38.4 pg (28.0-33.3); Mean Corpuscular Volume 115.1 fL (83.0-100.0); Mean Platelet Volume 11.2 fL (9.4-12.4); Monocytes # 0.5 K/mcL (0.0-1.3); Monocytes % 8.3 %; Neutrophils # 4.6 K/mcL (1.6-8.9); Platelet Count 148 K/mcL (140-400); Red Blood Count 2.71 M/mcL (3.82-4.97); Red Cell Distribution Width 15.4 % (11.5-14.5); Segmented Neutrophils % 76.7 %
[2019-07-30 06:58] LABS: Calcium 9.1 mg/dL (8.6-10.3); Magnesium 1.9 mg/dL (1.6-2.6); Potassium 3.7 mEq/L (3.5-5.1)
[2019-07-30 07:25] LABS: Anisocytosis 1+ (Not Present); Macrocytosis Present (Not Present)
[2019-07-30 07:26] LABS: Platelet Estimate Normal (Normal)
[2019-07-30] MEDS: Insulin LISPRO 300 UNITS/3 ML VIAL SQ SCH ×3 (08:06→16:42)
[2019-07-30] MEDS: Aspirin Enteric Coated 81 MG Tablet PO SCH (12:03)
[2019-07-31 06:06] LABS: Basophils % 0.4 %; Eosinophils # 0.1 K/mcL (0.0-0.6); Eosinophils % 1.3 %; Hematocrit 30.7 % (35.3-44.9); Hemoglobin 10.5 g/dL (11.5-15.4); Immature Granulocytes % 0.5 % (0-4); Lymphocytes # 1.1 K/mcL (0.6-4.6); Lymphocytes % 13.9 %; Mean Corpuscular HGB Conc 34.2 g/dL (31.6-35.5); Mean Corpuscular Hemoglobin 38.9 pg (28.0-33.3); Mean Corpuscular Volume 113.7 fL (83.0-100.0); Mean Platelet Volume 10.9 fL (9.4-12.4); Monocytes # 0.7 K/mcL (0.0-1.3); Neutrophils # 5.8 K/mcL (1.6-8.9); Platelet Count 157 K/mcL (140-400); Red Cell Distribution Width 15.4 % (11.5-14.5); Segmented Neutrophils % 74.9 %; White Blood Count 7.7 K/mcL (4.3-11.1)
[2019-07-31 06:38] LABS: Calcium 8.7 mg/dL (8.6-10.3); Potassium 3.7 mEq/L (3.5-5.1)
[2019-07-31 06:42] LABS: Triiodothyronine (T3) Free 4.42 pg/mL (2.50-3.90)
[2019-07-31 06:46] LABS: Triiodothyronine (T3) Total 2.72 ng/mL (0.87-1.78)
[2019-07-31] MEDS: Aspirin Enteric Coated 81 MG Tablet PO SCH (09:14)
[2019-07-31] MEDS: Insulin LISPRO 300 UNITS/3 ML VIAL SQ SCH ×3 (09:14→16:58)
[2019-07-31] MEDS ORDERED: predniSONE 20 MG TABLET PO ONE (21:00)
[2019-08-01 08:26] LABS: Basophils % 0.1 %; Hematocrit 34.7 % (35.3-44.9); Hemoglobin 11.6 g/dL (11.5-15.4); Immature Granulocytes % 0.6 % (0-4); Lymphocytes # 0.4 K/mcL (0.6-4.6); Lymphocytes % 6.2 %; Mean Corpuscular HGB Conc 33.4 g/dL (31.6-35.5); Mean Corpuscular Hemoglobin 38.9 pg (28.0-33.3); Mean Corpuscular Volume 116.4 fL (83.0-100.0); Mean Platelet Volume 10.7 fL (9.4-12.4); Monocytes # 0.1 K/mcL (0.0-1.3); Monocytes % 1.1 %; Platelet Count 184 K/mcL (140-400); Red Blood Count 2.98 M/mcL (3.82-4.97); Red Cell Distribution Width 15.2 % (11.5-14.5); White Blood Count 7.1 K/mcL (4.3-11.1)
[2019-08-01 08:29] LABS: Neutrophils # 6.5 K/mcL (1.6-8.9)
[2019-08-01 08:41] LABS: Macrocytosis Present (Not Present); Platelet Estimate Normal (Normal)
[2019-08-01 08:42] LABS: Anisocytosis 1+ (Not Present)
[2019-08-01] MEDS ORDERED: 0.9 % Sodium Chloride 250 ML IVC PRN (08:42)
[2019-08-01] MEDS: Aspirin Enteric Coated 81 MG Tablet PO SCH (08:46)
[2019-08-01] MEDS: Insulin LISPRO 300 UNITS/3 ML VIAL SQ SCH ×3 (08:46→17:12)
[2019-08-01 08:47] LABS: Calcium 8.8 mg/dL (8.6-10.3); Potassium 5.1 mEq/L (3.5-5.1)
[2019-08-01] MEDS ORDERED: predniSONE 20 MG TABLET PO ONE (09:00)
[2019-08-01] MEDS ORDERED: Nitroglycerin 1,000 MCG/10 ML VIAL IV ONE (14:51)
[2019-08-01] MEDS ORDERED: *HR* Heparin 10,000 UNIT/10 ML VIAL ONE (14:51)
[2019-08-01] MEDS ORDERED: Heparin 1,000 UNITS/500 mL 500 ML ONE (14:51)
[2019-08-01] MEDS ORDERED: ISOVUE-370 200 ML INFUS..BTL ONE (14:51)
[2019-08-01] MEDS ORDERED: 0.9 % Sodium Chloride 2,000 ML ONE (14:51)
[2019-08-01] MEDS ORDERED: *HR* Midazolam HCl 2 MG/2 ML VIAL ONE (15:09)
[2019-08-01] MEDS ORDERED: *HR* FentaNYL (PF) 100 MCG/2 ML VIAL ONE (15:10)
[2019-08-01] MEDS ORDERED: methylPREDNISolone 125 MG/2 ML VIAL ONE (15:17)
[2019-08-01] MEDS: Gabapentin 300 MG CAPSULE PO SCH (20:46)
[2019-08-02 05:05] LABS: Basophils % 0.1 %; Hematocrit 35.8 % (35.3-44.9); Hemoglobin 12.4 g/dL (11.5-15.4); Lymphocytes # 0.5 K/mcL (0.6-4.6); Lymphocytes % 4.5 %; Mean Corpuscular HGB Conc 34.6 g/dL (31.6-35.5); Mean Corpuscular Hemoglobin 39.1 pg (28.0-33.3); Mean Corpuscular Volume 112.9 fL (83.0-100.0); Mean Platelet Volume 11.3 fL (9.4-12.4); Monocytes # 0.5 K/mcL (0.0-1.3); Monocytes % 4.6 %; Neutrophils # 9.7 K/mcL (1.6-8.9); Nucleated Red Blood Cells 0.2 /100 WBC (0); Platelet Count 182 K/mcL (140-400); Red Blood Count 3.17 M/mcL (3.82-4.97); Red Cell Distribution Width 15.2 % (11.5-14.5); Segmented Neutrophils % 89.8 %
[2019-08-02 05:18] LABS: White Blood Count 10.8 K/mcL (4.3-11.1)
[2019-08-02 05:25] LABS: Calcium 9.1 mg/dL (8.6-10.3); Potassium 5.3 mEq/L (3.5-5.1)
[2019-08-02 05:52] LABS: Macrocytosis Present (Not Present); Platelet Estimate Normal (Normal)
[2019-08-02] MEDS: Insulin LISPRO 300 UNITS/3 ML VIAL SQ SCH ×3 (08:06→16:49)
[2019-08-02] MEDS: Gabapentin 300 MG CAPSULE PO SCH ×2 (08:06→21:01)
[2019-08-02] MEDS: Aspirin Enteric Coated 81 MG Tablet PO SCH (08:06)
[2019-08-02] MEDS: Ondansetron 4 MG/2 ML VIAL IVP PRN (18:28)
[2019-08-03] MEDS ORDERED: *HR* Heparin 10,000 UNIT/10 ML VIAL IV PRN (07:22)
[2019-08-03] MEDS ORDERED: Albumin 25% 25gram/100mL 25 GM/100 ML IV.SOLN IVPB PRN ×2 (07:22→10:14)
[2019-08-03] MEDS ORDERED: 0.9 % Sodium Chloride 250 ML IVC PRN (07:22)
[2019-08-03] MEDS ORDERED: 0.9 % Sodium Chloride 1,000 ML PRIME SCH (07:30)
[2019-08-03 07:37] LABS: Hematocrit 34.1 % (35.3-44.9); Hemoglobin 12.1 g/dL (11.5-15.4); Mean Corpuscular HGB Conc 35.5 g/dL (31.6-35.5); Mean Corpuscular Hemoglobin 39.3 pg (28.0-33.3); Mean Corpuscular Volume 110.7 fL (83.0-100.0); Mean Platelet Volume 11.8 fL (9.4-12.4); Platelet Count 133 K/mcL (140-400); Red Blood Count 3.08 M/mcL (3.82-4.97); Red Cell Distribution Width 14.8 % (11.5-14.5); White Blood Count 13.7 K/mcL (4.3-11.1)
[2019-08-03] MEDS ORDERED: Albumin 25% 12.5gm/50mL 25.0 GM/100 ML IV.SOLN ONE (07:51)
[2019-08-03] MEDS: Aspirin Enteric Coated 81 MG Tablet PO SCH (08:06)
[2019-08-03] MEDS: Insulin LISPRO 300 UNITS/3 ML VIAL SQ SCH ×2 (08:07→13:02)
[2019-08-03] MEDS: Gabapentin 300 MG CAPSULE PO SCH (08:07)
[2019-08-03 08:37] LABS: Lymphocytes # 0.3 K/mcL (0.6-4.6); Monocytes # 0.3 K/mcL (0.0-1.3); Neutrophils # 13.2 K/mcL (1.6-8.9); Platelet Estimate Slight Decrease (Normal); Toxic Granulation Present (Not Present)
[2019-08-03 08:38] LABS: Macrocytosis Present (Not Present); Polychromasia 1+ (Not Present); Target Cells 1+ (Not Present)
[2019-08-03] MEDS ORDERED: Albumin 25% 25gram/100mL 25 GM/100 ML IV.SOLN ONE (08:58)
[2019-08-03 09:34] LABS: Calcium 7.8 mg/dL (8.6-10.3); Potassium 6.5 mEq/L (3.5-5.1)
[2019-08-03] MEDS ORDERED: Atropine Sulfate 1% 40 DROP/2 ML BOTTLE SL PRN (12:39)
[2019-08-03] MEDS: Ondansetron 4 MG/2 ML VIAL IVP PRN (12:43)
[2019-08-03 14:00] VITALS: BP 106/39
== END 2019-08-03 14:38 | disposition expired | DRG 555 ==
LOC: 2ANU 08:55 → EMEROOARM 08:55 → 2ANU 12:45 → SUATTDRO 14:59
PROVIDERS: ADMIT Internal Medicine; ATTEND Internal Medicine